=== PATIENT | male | born 1965 | race Caucasian/White ===

== ENCOUNTER 2016-11-28 10:56 | Inpatient (IN) | payer BC ==
[2016-11-28] MEDS ORDERED: ONDANSETRON 4 MG/2 ML VIAL IVPUSH ONE (11:11)
[2016-11-28] MEDS ORDERED: SODIUM CHLORIDE 1,000 ML IV SCH ×2 (11:15→16:15)
[2016-11-28] MEDS ORDERED: ACETAMINOPHEN 1000 MG/100 ML VIAL (NON FORMULARY) IVPB ONE (11:18)
--- NOTE | 2016-11-28 11:22 | PDOC ---
History of Present Illness - General Chief Complaint: Nausea/Vomiting Stated Complaint: VOMITING Time Seen by Provider: 11/28/16 11:05 - History of Present Illness Initial Comments: 11/28/16 11:19 51-year-old male with a past medical history of mild MR, hypertension, and diabetes He does live independently Patient is complaining of multiple episodes of vomiting for the past 24 hours, associated with a few episodes of diarrhea Is also complaining of a nonproductive cough He denies any fevers or chills He is complaining of abdominal pain with vomiting only, but otherwise no abdominal pain He is complaining of myalgias and a headache He is complaining of a mild sore throat He states that he did get the flu shot this year He denies any blood in his diarrhea or vomitus He states his cough is nonproductive He denies any other complaints at this time Patient was sent down from Dr. Choi's office to the emergency department Past History - Past Medical History Allergies/Adverse Reactions: Allergies Allergy/AdvReac Type Severity Reaction Status Date / Time pioglitazone HCl [From Actos] AdvReac Unknown Fluid Verified 11/28/16 10:58 retention& Accelerated HTN Home Medications: Ambulatory Orders Tamsulosin HCl [Flomax] 0.4 mg PO DAILY #7 capsule 01/09/16 Diabetes: Yes HTN: Yes Hypercholesterolemia: Yes - Surgical History Orthopedic Surgery: Yes (RT TOTAL KNEE REPLACEMENT) - Psycho/Social/Smoking Cessation Hx Anxiety: No Suicidal Ideation: No Smoking Status: No Smoking History: Never smoked Have you smoked in the past 12 months: No Number of Cigarettes Smoked Daily: 0 Hx Alcohol Use: No Drug/Substance Use Hx: No Substance Use Type: None Review of Systems - Review of Systems Able to Perform ROS?: Yes Comments:: 11/28/16 11:21 Review of systems is as per history of present illness and otherwise negative *Physical Exam - Physical Exam Comments: 11/28/16 11:21 Physical exam GENERAL: The patient is awake, alert, and fully oriented, and in no apparent distress. HEAD: Normal with no signs of trauma. EYES: Sclera anicteric, conjunctiva normal ENT: He does membranes dry NECK: Normal range of motion, supple LUNGS: Breath sounds equal, clear to auscultation bilaterally. No wheezes, and no crackles. HEART: Regular rate and rhythm, normal S1 and S2 without murmur, rub or gallop. ABDOMEN: Soft, nontender, normoactive bowel sounds. No guarding, no rebound. No masses appreciated. Abdomen is completely soft and nontender EXTREMITIES: Normal range of motion, no edema. No clubbing or cyanosis. No cords, erythema, or tenderness. NEUROLOGICAL: Cranial nerves II through XII grossly intact. Normal speech, normal gait. PSYCH: Normal mood, normal affect. SKIN: Warm, Dry, normal turgor, no rashes or lesions noted. ED Treatment Course - LABORATORY CBC & Chemistry Diagram: 11/28/16 11:15 11/28/16 11:15 - RADIOLOGY Radiology Studies Ordered: Category Date Time Status CHEST X-RAY PORTABLE* [RAD] Stat Radiology 11/28/16 11:18 Ordered Medical Decision Making - Medical Decision Making 11/28/16 13:57 Patient had 2 L of normal saline, and meds Although he is feeling a little better, he is still unable to tolerate clear liquids Labwork is significant for a random glucose of 256 A white count of 12.6 Chest x-ray NAD 11/28/16 13:58 Laboratory Results - last 24 hr 11/28/16 11/28/16 11:15 11:15 WBC 12.6 H RBC 4.88 Hgb 14.5 D Hct 43.3 MCV 88.7 MCHC 33.5 RDW 11.8 L Plt Count 276 D MPV 9.7 D Sodium 134 L Potassium 4.0 Chloride 97 L Carbon Dioxide 27 Anion Gap 10 BUN 9 D Creatinine 1.1 Creat Clearance w eGFR > 60 Random Glucose 256 H D Calcium 9.3 Magnesium 1.5 L Total Bilirubin 0.6 AST 39 D ALT 25 Alkaline Phosphatase 95 H Total Protein 6.8 Albumin 3.4 L Lipase 23 Patient has mild MR, and lives alone, and cares for himself He still appears mildly dehydrated Would like to place in observation, continue hydration to his feeling well enough to go home again and care for himself 11/28/16 14:12 Case discussed with hospitalist-Will place in observation *DC/Admit/Observation/Transfer Diagnosis at time of Disposition: Nausea vomiting and diarrhea, Dehydration, Cough - Discharge Dispostion Condition at time of disposition: Stable Admit: Yes
[2016-11-28] MEDS ORDERED: ACETAMINOPHEN INJECTION 100 ML IVPB ONE (11:27)
[2016-11-28] MEDS ORDERED: ONDANSETRON 4 MG/2 ML VIAL ONE ×2 (11:27→16:54)
[2016-11-28 11:29] LABS: MCH 29.7 pg (25.7-33.7); MCHC 33.5 g/dl (32.0-35.9); MEAN CELL VOLUME 88.7 fl (80-96); MEAN PLT VOLUME 9.7 fl (7.5-11.1); PLATELET COUNT 276 K/MM3 (134-434); RDW 11.8 % (11.9-15.9); WHITE BLOOD COUNT 12.6 K/mm3 (4.0-10.0)
[2016-11-28 11:52] LABS: ALBUMIN 3.4 g/dl (3.5-5.0); ALK PHOS 95 U/L (32-92); ANION GAP 10 (8-16); BILIRUBIN,TOTAL 0.6 mg/dl (0.2-1.0); CALCIUM 9.3 mg/dl (8.4-10.2); CO2 27 mmol/L (22-28); CREATININE 1.1 mg/dl (0.6-1.3); GLUCOSE,RANDOM 256 mg/dl (74-106); MAGNESIUM 1.5 mg/dL (1.8-2.4); SGOT/AST 39 U/L (10-42); SGPT/ALT 25 U/L (10-40); TOT PROT 6.8 g/dl (6.4-8.3)
--- NOTE | 2016-11-28 15:09 | HP ---
CHIEF COMPLAINT: Vomiting PCP: Dr. Nj HISTORY OF PRESENT ILLNESS: History of mild MR, HTN, NIDDM who presented to the ED complaining of vomiting x 1.5 days with several episodes of diarrhea. He reports some generalized abdominal pain. He has had chills but no fever. Collateral history is obtained from his uncle Maynor Harrison ([phone]). ER course was notable for: (1) WBC mildly elevated at 12.6 (2) Hypomagnesemia (1.5) (3) Rapid flu negative Vital signs are notable for HR 110. Recent Travel: None PAST SURGICAL HISTORY: Right TKR Social History: Formerly worked for [employer], not currently employed. Lives alone. Smoking: None Alcohol: None Drugs: None Family History: None significant per uncle Allergies pioglitazone HCl [From [employer]] Adverse Reaction (Unknown, Verified 11/28/16 10:58 ) Fluid retention& Accelerated HTN HOME MEDICATIONS: Medication Instructions Recorded Tamsulosin HCl [Flomax] 0.4 mg PO DAILY #7 capsule 01/09/16 REVIEW OF SYSTEMS CONSTITUTIONAL: Chills Absent: fever, diaphoresis, generalized weakness, malaise, loss of appetite, weight change HEENT: Absent: rhinorrhea, nasal congestion, throat pain, throat swelling, difficulty swallowing, mouth swelling, ear pain, eye pain, visual changes CARDIOVASCULAR: Absent: chest pain, syncope, palpitations, irregular heart rate, lightheadedness , peripheral edema RESPIRATORY: Productive cough, pain with deep breathing Absent: shortness of breath, dyspnea with exertion, orthopnea, wheezing, stridor , hemoptysis GASTROINTESTINAL: See HPI GENITOURINARY: Absent: dysuria, frequency, urgency, hesitancy, hematuria, flank pain, genital pain MUSCULOSKELETAL: Chronic right knee pain Absent: myalgia, joint swelling, back pain, neck pain SKIN: Absent: rash, itching, pallor HEMATOLOGIC/IMMUNOLOGIC: Absent: easy bleeding, easy bruising, lymphadenopathy, frequent infections ENDOCRINE: Absent: unexplained weight gain, unexplained weight loss, heat intolerance, cold intolerance NEUROLOGIC: Absent: headache, focal weakness or paresthesias, dizziness, unsteady gait, seizure, mental status changes, bladder or bowel incontinence PSYCHIATRIC: Absent: anxiety, depression, suicidal or homicidal ideation, hallucinations. PHYSICAL EXAMINATION Vital Signs - 24 hr 11/28/16 11:05 Temperature 98.1 F Pulse Rate 110 H Respiratory 16 Rate Blood Pressure 130/92 O2 Sat by Pulse 100 Oximetry (%) GENERAL: Awake, alert, and fully oriented, in no acute distress. HEAD: Normal with no signs of trauma. EYES: Pupils equal, round and reactive to light, extraocular movements intact, sclera anicteric, conjunctiva clear. No lid lag. EARS, NOSE, THROAT: Ears normal, nares patent, oropharynx clear without exudates. Moist mucous membranes. NECK: Normal range of motion, supple without lymphadenopathy, JVD, or masses. LUNGS: Breath sounds equal, clear to auscultation bilaterally. No wheezes, and no crackles. No accessory muscle use. HEART: Tachycardic. Regular rate and rhythm, normal S1 and S2 without murmur, rub or gallop. ABDOMEN: Soft, nontender even to deep palpation, not distended, normoactive bowel sounds, no guarding, no rebound, no masses. No hepatomegaly or splenomegaly. MUSCULOSKELETAL: Normal range of motion at all joints. No bony deformities or tenderness. No CVA tenderness. UPPER EXTREMITIES: 2+ pulses, warm, well-perfused. No cyanosis. No clubbing. Cap refill <2 seconds. No peripheral edema. LOWER EXTREMITIES: 2+ pulses, warm, well-perfused. No calf tenderness. No peripheral edema. NEUROLOGICAL: Cranial nerves II-XII intact. Normal speech. Normal gait. PSYCHIATRIC: Cooperative. Good eye contact. Appropriate mood and affect. SKIN: Warm, dry, normal turgor, no rashes or lesions noted. Laboratory Results - last 24 hr 11/28/16 11/28/16 11:15 11:15 WBC 12.6 H RBC 4.88 Hgb 14.5 D Hct 43.3 MCV 88.7 MCHC 33.5 RDW 11.8 L Plt Count 276 D MPV 9.7 D Sodium 134 L Potassium 4.0 Chloride 97 L Carbon Dioxide 27 Anion Gap 10 BUN 9 D Creatinine 1.1 Creat Clearance w eGFR > 60 Random Glucose 256 H D Calcium 9.3 Magnesium 1.5 L Total Bilirubin 0.6 AST 39 D ALT 25 Alkaline Phosphatase 95 H Total Protein 6.8 Albumin 3.4 L Lipase 23 ASSESSMENT/PLAN: 51 year old male with n/v/d. Problem List - Problem (1) Nausea vomiting and diarrhea Assessment/Plan: -No focal abdominal tenderness; suspect viral gastroenteritis -Continue IV hydration -Zofran 4mg IVP q6h prn nausea -Replete Mg -Clear liquid diet, advance as tolerated Code(s): R11.2 - NAUSEA WITH VOMITING, UNSPECIFIED R19.7 - DIARRHEA, UNSPECIFIED (2) Diabetes mellitus Assessment/Plan: -Continue Metformin and Glipizide (short expected length of stay) -Add FS TIDAC and ISS (above goal) -Check HgbA1C Code(s): E11.9 - TYPE 2 DIABETES MELLITUS WITHOUT COMPLICATIONS Qualifiers: Diabetes mellitus type: type 2 Diabetes mellitus complication status: without complication (3) HTN (hypertension) Assessment/Plan: -At goal -Continue home Lisinopril Code(s): I10 - ESSENTIAL (PRIMARY) HYPERTENSION (4) DVT prophylaxis Assessment/Plan: -Low risk (short expected length of stay) -Ambulation Code(s): [id number] - Visit type - Emergency Visit Emergency Visit: Yes ED Registration Date: 11/28/16 Care time: The patient presented to the Emergency Department on the above date and was hospitalized for further evaluation of their emergent condition. - New Patient This patient is new to me today: Yes Date on this admission: 11/29/16 - Critical Care Critical Care patient: No
[2016-11-28] MEDS ORDERED: ONDANSETRON 4 MG/2 ML VIAL IVPB PRN (16:08)
[2016-11-28] MEDS ORDERED: ACETAMINOPHEN 325 MG TABLET (FP) PO PRN (16:08)
[2016-11-28] MEDS ORDERED: MAGNESIUM SULF 50% (8.12 MEQ/2 ML-1 GM VIAL) IVPB ONE (16:11)
[2016-11-28] MEDS ORDERED: MAGNESIUM SULF 50% (8.12 MEQ/2 ML-1 GM VIAL) ONE (16:30)
[2016-11-28] MEDS ORDERED: HEMOQUE TEST 1 EACH EACH ONE (17:03)
[2016-11-28] MEDS: metFORMIN HCL 500 MG TABLET (FP) PO SCH (17:19)
[2016-11-28] MEDS: glipiZIDE 10 MG TABLET (FP) PO SCH (17:19)
[2016-11-28 18:29] VITALS: BMI 33.5
[2016-11-28] MEDS: INSULIN SLIDING SCALE (NOVOLOG) 1 VIAL SQ SCH (18:30)
[2016-11-28] MEDS: NITROGLYCERIN SUBLINGUAL 1/150 0.4 MG TAB SL PRN ×3 (19:28→19:39)
[2016-11-28] MEDS ORDERED: NITROGLYCERIN SUBLINGUAL 1/150 0.4 MG TAB ONE ×2 (19:35→19:45)
[2016-11-28] MEDS ORDERED: ASPIRIN 325 MG TABLET PO ONE (19:58)
[2016-11-28] MEDS: morphine CARPU-JECT 2 MG/1 ML DISP.SYRIN IVPUSH PRN (20:00)
--- NOTE | 2016-11-28 20:11 | ED.PROV ---
Physicial Exam - Vital Signs Last Vital Signs Temp Pulse Resp BP Pulse Ox 99 F 113 H 20 131/81 98 11/28/16 18:18 11/28/16 18:18 11/28/16 18:18 11/28/16 18:18 11/28/16 18:29 - Physical Exam Reason for Response: 11/28/16 20:07 Called to the floor to evaluate this 51-year-old mentally challenged male who developed chest pain this evening. Patient describes the chest pain as being sharp in nature left-sided radiating towards her right. There is no associated nausea diaphoresis or shortness of breath however patient said that pain is worse when he moves worse when he coughs worse when he takes a deep breath. Patient is a poor historian however in review of his medications in chart it does appear he has a history of diabetes and hypertension. Patient is also noted to be somewhat obese. Prior to my arrival on the floor a EKG was done and then repeated as the machine was giving a reading of an acute NC/STEMI. On my evaluation of the EKG there is a poor baseline and the quality of the EKG is suboptimal however I am not interpreting it as an acute NC. In discussion with nursing patient's primary care doctor was contacted who ordered an aspirin, nitroglycerin and morphine. All of which were given to the patient either before or during my evaluation. None of the medication appeared to change the patient's symptoms. Cardiac labs including troponin were drawn and sent to the lab. A batch plant operator was contacted and nursing staff is waiting for a call back from the batch plant operator. I suggested that a copy of the EKG B also faxed to the batch plant operator for his interpretation and evaluation. Exam: General: Well-nourished well-developed individual, mild distress complaining of chest pain HEENT: Throat: Normal, tonsils normal, no erythema or exudate Neck: Supple, no meningeal signs, no lymphadenopathy Eyes::Pupils equal reactive and round, extraocular motion intact Chest: Tenderness on palpation and pain reproduced with palpation Cardiac: S1-S2 normal, regular rate and rhythm, no murmurs rubs or gallops Respiratory: Lungs clear to auscultation bilateral Abdomen: Soft, nondistended, normal bowel sounds, nontender to palpation diffusely Extremities: Warm, dry, no cyanosis, clubbing, or edema Skin: No rashes Neuro: Alert and oriented x3, nonfocal exam, grossly intact, normal gait Psych: Normal mood and affect
[2016-11-28 20:24] LABS: BASOPHIL 0.2 % (0-2.0); EOSINOPHIL 0.9 % (0-4.5); MCH 29.5 pg (25.7-33.7); MCHC 33.1 g/dl (32.0-35.9); MEAN CELL VOLUME 89.4 fl (80-96); MEAN PLT VOLUME 9.6 fl (7.5-11.1); NEUTROPHILS 82.8 % (42.8-82.8); PLATELET COUNT 273 K/MM3 (134-434); RDW 12.1 % (11.9-15.9); WHITE BLOOD COUNT 13.9 K/mm3 (4.0-10.0)
[2016-11-28 20:31] LABS: ACTIVATED PTT 28.7 SECONDS (24.0-38.9)
[2016-11-28 20:33] LABS: CPK(DFH) 43 IU/L (38-174)
[2016-11-28 20:34] LABS: ALBUMIN 3.1 g/dl (3.5-5.0); ALK PHOS 90 U/L (32-92); ANION GAP 7 (8-16); BILIRUBIN,TOTAL 0.6 mg/dl (0.2-1.0); CALCIUM 8.8 mg/dl (8.4-10.2); CO2 29 mmol/L (22-28); CREATININE 1.1 mg/dl (0.6-1.3); GLUCOSE,RANDOM 181 mg/dl (74-106); MAGNESIUM 1.9 mg/dL (1.8-2.4); SGOT/AST 32 U/L (10-42); SGPT/ALT 23 U/L (10-40); TOT PROT 6.1 g/dl (6.4-8.3)
[2016-11-28 20:35] LABS: INR 1.31 (0.82-1.09); PROTHROMBIN TIME (PATIENT) 14.3 SEC (10.2-13.0)
[2016-11-28 21:07] LABS: TROPONIN I (DFP) < 0.03 ng/ml (0.03-0.50)
--- NOTE | 2016-11-29 01:34 | HOSP ---
Subjective - Review of Symptoms Events since last encounter: Pt reported Chest pain earlier to staff. ECG done, troponin negative x 1. Dr. Mills consulted via telephone Subjective: Pt reports he still has some chest pain in the mid left side of his chest. States "it hurts every time i take a deep breath" Pulmonary: Yes: Pleuritic Chest Pain. No: Dyspnea, Cough Cardiovascular: Yes: Chest Pain Physical Examination Vital Signs: Vital Signs Temperature 98.9 F 11/29/16 00:24 Pulse Rate 100 H 11/29/16 00:24 Respiratory Rate 20 11/29/16 00:24 Blood Pressure 96/68 11/29/16 00:24 O2 Sat by Pulse Oximetry (%) 97 11/29/16 00:24 Constitutional: Yes: No Distress, Calm Cardiovascular: Yes: Regular Rate and Rhythm, S1, S2. No: Murmur, Rub Respiratory: Yes: CTA Bilaterally. No: Cough Gastrointestinal: Yes: Normal Bowel Sounds, Soft. No: Tenderness Edema: No Labs: Laboratory Results - last 24 hr 11/28/16 11/28/16 11/28/16 11:15 11:15 17:07 WBC 12.6 H RBC 4.88 Hgb 14.5 D Hct 43.3 MCV 88.7 MCHC 33.5 RDW 11.8 L Plt Count 276 D MPV 9.7 D Neutrophils % Lymphocytes % Monocytes % Eosinophils % Basophils % INR PTT (Actin FS) Sodium 134 L Potassium 4.0 Chloride 97 L Carbon Dioxide 27 Anion Gap 10 BUN 9 D Creatinine 1.1 Creat Clearance w eGFR > 60 POC Glucometer [phone] Random Glucose 256 H D Calcium 9.3 Magnesium 1.5 L Total Bilirubin 0.6 AST 39 D ALT 25 Alkaline Phosphatase 95 H Creatine Kinase Troponin I Total Protein 6.8 Albumin 3.4 L Lipase 23 11/28/16 11/28/16 11/28/16 20:00 20:00 20:00 WBC 13.9 H RBC 4.55 Hgb 13.4 Hct 40.7 MCV 89.4 MCHC 33.1 RDW 12.1 Plt Count 273 MPV 9.6 Neutrophils % 82.8 Lymphocytes % 10.4 Monocytes % 5.7 Eosinophils % 0.9 Basophils % 0.2 INR PTT (Actin FS) Sodium 135 L Potassium 4.0 Chloride 99 Carbon Dioxide 29 H Anion Gap 7 L BUN 9 Creatinine 1.1 Creat Clearance w eGFR > 60 POC Glucometer Random Glucose 181 H D Calcium 8.8 Magnesium 1.9 D Total Bilirubin 0.6 AST 32 ALT 23 Alkaline Phosphatase 90 Creatine Kinase 43 Troponin I < 0.03 L Total Protein 6.1 L Albumin 3.1 L Lipase 11/28/16 20:00 WBC RBC Hgb Hct MCV MCHC RDW Plt Count MPV Neutrophils % Lymphocytes % Monocytes % Eosinophils % Basophils % INR 1.31 H PTT (Actin FS) 28.7 Sodium Potassium Chloride Carbon Dioxide Anion Gap BUN Creatinine Creat Clearance w eGFR POC Glucometer Random Glucose Calcium Magnesium Total Bilirubin AST ALT Alkaline Phosphatase Creatine Kinase Troponin I Total Protein Albumin Lipase ECG: sinus rhythm, rate 115. St elevation lead I and II, No elevation in III or aVF or aVL, less than 1mm elevation in V5 & V6. ? J point elevation rather than true ST elevation Hospitalist Encounter Assessment: Chest pain, likely pleuritic - trend troponins, repeat ECG in am. - improved with morphine. - would give motrin if further pain. - cardiology consult appreciated-as per Dr. mills, not true ST elevation MA , call her if troponin positive.
[2016-11-29 03:14] LABS: TROPONIN I < 0.02 ng/ml (0.00-0.05)
[2016-11-29] MEDS: morphine CARPU-JECT 2 MG/1 ML DISP.SYRIN IVPUSH PRN (05:06)
[2016-11-29] MEDS ORDERED: glipiZIDE 5 MG TABLET (FP) ONE (07:09)
[2016-11-29] MEDS: glipiZIDE 10 MG TABLET (FP) PO SCH (07:10)
[2016-11-29] MEDS: metFORMIN HCL 500 MG TABLET (FP) PO SCH (07:11)
[2016-11-29] MEDS: INSULIN SLIDING SCALE (NOVOLOG) 1 VIAL SQ SCH ×3 (07:11→18:46)
[2016-11-29 08:21] LABS: BASOPHIL 0.2 % (0-2.0); EOSINOPHIL 1.5 % (0-4.5); MCH 29.6 pg (25.7-33.7); MCHC 32.6 g/dl (32.0-35.9); MEAN CELL VOLUME 90.7 fl (80-96); MEAN PLT VOLUME 10.1 fl (7.5-11.1); PLATELET COUNT 266 K/MM3 (134-434); RDW 12.1 % (11.9-15.9); WHITE BLOOD COUNT 13.2 K/mm3 (4.0-10.0)
[2016-11-29 08:40] LABS: ALBUMIN 2.9 g/dl (3.5-5.0); ALK PHOS 109 U/L (32-92); ANION GAP 7 (8-16); BILIRUBIN,TOTAL 0.7 mg/dl (0.2-1.0); CALCIUM 8.6 mg/dl (8.4-10.2); CO2 29 mmol/L (22-28); GLUCOSE,RANDOM 170 mg/dl (74-106); MAGNESIUM 1.8 mg/dL (1.8-2.4); SGOT/AST 31 U/L (10-42); SGPT/ALT 28 U/L (10-40)
[2016-11-29] MEDS: LISINOPRIL 5 MG TABLET (FP) PO SCH (09:28)
[2016-11-29] MEDS: TAMSULOSIN HCL 0.4 MG CAP.ER.24H (FP) PO SCH (09:28)
[2016-11-29] MEDS: IBUPROFEN 400 MG TABLET (FP) PO PRN ×2 (09:29→18:00)
[2016-11-29] MEDS ORDERED: ASPIRIN 81 MG CHEWABLE TABLETS PO SCH (10:00)
--- NOTE | 2016-11-29 10:09 | PN ---
Physical Exam: SUBJECTIVE: Patient seen and examined. Complaining of headache and chest pain. History difficult to ascertain due to developmental delay. OBJECTIVE: Vital Signs Period Temp Pulse Resp BP Sys/Carias Pulse Ox Last 24 Hr 98.3 F-99.2 F 100-117 19-20 96-131/66-93 97-98 GENERAL: The patient is awake, alert, and fully oriented, in no acute distress. HEAD: Normal with no signs of trauma; tenderness over frontal sinuses EYES: PERRL, extraocular movements intact, sclera anicteric, conjunctiva clear. No ptosis. LUNGS: Breath sounds equal, clear to auscultation bilaterally, no wheezes, no crackles, no accessory muscle use. HEART: Regular rate and rhythm, S1, S2 without murmur, rub or gallop. ABDOMEN: Soft, nontender, nondistended, normoactive bowel sounds, no guarding, no rebound EXTREMITIES: 2+ pulses, warm, well-perfused, no edema. NEUROLOGICAL: Cranial nerves II through XII grossly intact. Normal speech, gait not observed. Laboratory Results - last 24 hr 11/28/16 11/28/16 11/28/16 20:00 20:00 20:00 WBC 13.9 H RBC 4.55 Hgb 13.4 Hct 40.7 MCV 89.4 MCHC 33.1 RDW 12.1 Plt Count 273 MPV 9.6 Neutrophils % 82.8 Lymphocytes % 10.4 Monocytes % 5.7 Eosinophils % 0.9 Basophils % 0.2 ESR INR PTT (Actin FS) Sodium 135 L Potassium 4.0 Chloride 99 Carbon Dioxide 29 H Anion Gap 7 L BUN 9 Creatinine 1.1 Creat Clearance w eGFR > 60 POC Glucometer Random Glucose 181 H D Calcium 8.8 Magnesium 1.9 D Total Bilirubin 0.6 AST 32 ALT 23 Alkaline Phosphatase 90 Creatine Kinase 43 Troponin I < 0.03 L Total Protein 6.1 L Albumin 3.1 L 11/28/16 11/29/16 11/29/16 20:00 02:38 07:08 WBC RBC Hgb Hct MCV MCHC RDW Plt Count MPV Neutrophils % Lymphocytes % Monocytes % Eosinophils % Basophils % ESR INR 1.31 H PTT (Actin FS) 28.7 Sodium Potassium Chloride Carbon Dioxide Anion Gap BUN Creatinine Creat Clearance w eGFR POC Glucometer 150 Random Glucose Calcium Magnesium Total Bilirubin AST ALT Alkaline Phosphatase Creatine Kinase 35 L Troponin I < 0.02 Total Protein Albumin 11/29/16 11/29/16 11/29/16 08:00 08:00 08:00 WBC 13.2 H RBC 4.34 Hgb 12.8 Hct 39.3 MCV 90.7 MCHC 32.6 RDW 12.1 Plt Count 266 MPV 10.1 Neutrophils % 79.0 Lymphocytes % 12.3 Monocytes % 7.0 Eosinophils % 1.5 Basophils % 0.2 ESR INR PTT (Actin FS) Sodium 136 Potassium 4.4 Chloride 100 Carbon Dioxide 29 H Anion Gap 7 L BUN 10 Creatinine 1.0 Creat Clearance w eGFR > 60 POC Glucometer Random Glucose 170 H Calcium 8.6 Magnesium 1.8 Total Bilirubin 0.7 AST 31 ALT 28 D Alkaline Phosphatase 109 H D Creatine Kinase Troponin I 0.00 Total Protein 6.0 L Albumin 2.9 L 11/29/16 08:00 WBC RBC Hgb Hct MCV MCHC RDW Plt Count MPV Neutrophils % Lymphocytes % Monocytes % Eosinophils % Basophils % ESR 52 H INR PTT (Actin FS) Sodium Potassium Chloride Carbon Dioxide Anion Gap BUN Creatinine Creat Clearance w eGFR POC Glucometer Random Glucose Calcium Magnesium Total Bilirubin AST ALT Alkaline Phosphatase Creatine Kinase Troponin I Total Protein Albumin Active Medications Generic Name Dose Route Start Last Admin Trade Name Freq PRN Reason Stop Dose Admin Colchicine 0.6 mg 11/29/16 10:15 Colcrys - PO BID [facility] Heparin Sodium (Porcine) 5,000 unit 11/29/16 10:15 Heparin - SQ BID [facility] Ibuprofen 800 mg 11/29/16 09:09 11/29/16 09:29 Motrin - PO 800 mg Q8H PRN Administration FEVER Insulin Aspart 1 vial 11/28/16 16:30 11/29/16 07:11 Novolog Vial Sliding Scale - SQ Not Given TIDAC [facility] Protocol Lisinopril 5 mg 11/29/16 10:00 11/29/16 09:28 Prinivil PO 5 mg DAILY MIR Administration Pantoprazole Sodium 40 mg 11/29/16 10:15 Protonix - PO BID [facility]IR Tamsulosin HCl 0.4 mg 11/29/16 10:00 11/29/16 09:28 Flomax - PO 0.4 mg DAILY MIR Administration ASSESSMENT/PLAN: 51 year-old male with a PMH of mild MR, HTN, and NIDDM who presented to the ED with symptoms of gastroenteritis, found to have possible pericarditis. Pericarditis --patient complains of pleuritic-type chest pain with diffuse ST elevations on ECG suggestive of pericarditis --start ibuprofen 800mg TID, colchicine BID, protonix Viral gastroenteritis --no vomiting, no diarrhea --afebrile, mild leukocytosis --supportive care Headache --complains of bilateral frontal sinus pain, tender on palpation --CT head and sinuses NIDDM --Novolog sliding scale coverage Hypertension --continue Lisinopril BPH --continue Flomax Developmental Delay F/E/N Fluids: PO intake adequate Electrolytes: replete as indicated Nutrition: clear diabetic, advance as tolerated DVT prophylaxis: subq heparin Dispo: Patient has extended family members that check in on him, make sure he gets to doctors' appointments, etc. Maynor Winston (uncle) ([phone]) and Ronald Harrison (cousin)([phone]). Patient's health care proxy is his brother, Fran Langston, who lives in [place] ([phone]). Spoke to all three today and advised of patient's status and that he will need close followup with Dr. Holloway. Visit type - Emergency Visit Emergency Visit: Yes ED Registration Date: 11/28/16 Care time: The patient presented to the Emergency Department on the above date and was hospitalized for further evaluation of their emergent condition. - New Patient This patient is new to me today: Yes Date on this admission: 11/29/16 - Critical Care Critical Care patient: No
[2016-11-29] MEDS: PANTOPRAZOLE 40 MG TABLET (FP) PO SCH ×2 (10:42→21:16)
[2016-11-29] MEDS: COLCHICINE 0.6 MG TABLET (FP) PO SCH ×2 (10:42→21:16)
[2016-11-29] MEDS: HEPARIN NA (PORCINE) 5,000 UNITS/ML 1ML VIAL SQ SCH ×2 (10:42→21:16)
--- NOTE | 2016-11-29 12:13 | CONSULT ---
Consult Consult Specialty:: Cardiology Referred by:: Dr Jessica Skaggs Reason for Consultation:: Chest pain - History of Present Illness Chief Complaint: vomitting History of Present Illness: 51 yo mentally-challenged man, with hx of HTN, DM here with vomitting. Last night, he developed left-sided CP -. worse with coughing/deep breathing and palpation. The pain went down his left arm/hand. his EKG was read by machine as acute inferior [place]. However, pt was evaluated by the ER physician who didn't think so. They faxed me the EKG which I reviewed and I also didn't think it was c/w acute [place]. He was treat\ed with SL NTG w/o improvement, then morphine which eventually helped. His Brisa have since come back negative. Currently, he only has mild pain with deep breathing and on palpation. He denies cardiac hx -. no W[place], CP syndrome , CHF. He walks regularly w/o issues. He started vomiting on -. lasted all day. He denies fevers, sweats or chills. - History Source History Provided By: Patient - Past Medical History Cardio/Vascular: Yes: HTN Musculoskeletal: Yes: Other (knee issuesa) Endocrine: Yes: Diabetes Mellitus - Past Surgical History Past Surgical History: Yes: Joint Replacement (right knee, 05/01), Tonsillectomy - Alcohol/Substance Use Hx Alcohol Use: No History of Substance Use: reports: None - Smoking History Smoking history: Never smoked Have you smoked in the past 12 months: No Aproximately how many cigarettes per day: 0 - Social History Usual Living Arrangement: Alone ADL: Independent History of Recent Travel: No Home Medications - Allergies Allergies/Adverse Reactions: Allergies Allergy/AdvReac Type Severity Reaction Status Date / Time pioglitazone HCl [From Actos] AdvReac Unknown Fluid Verified 11/28/16 10:58 retention& Accelerated HTN - Home Medications Home Medications: Ambulatory Orders Tamsulosin HCl [Flomax] 0.4 mg PO DAILY #7 capsule 01/09/16 Family Disease History - Family Disease History Family History: Denies (premature CAD) Review of Systems - Review of Systems Constitutional: reports: Malaise Eyes: reports: No Symptoms HENT: reports: No Symptoms Neck: reports: No Symptoms Cardiovascular: reports: Chest Pain Respiratory: reports: No Symptoms Gastrointestinal: reports: Vomiting Genitourinary: reports: No Symptoms Musculoskeletal: reports: Joint Pain Neurological: reports: No Symptoms Endocrine: reports: No Symptoms Physical Exam Vital Signs: Vital Signs Temperature 98.3 F 11/29/16 06:00 Pulse Rate 105 H 11/29/16 06:00 Respiratory Rate 20 11/29/16 06:00 Blood Pressure 131/93 11/29/16 06:00 O2 Sat by Pulse Oximetry (%) 97 11/29/16 06:00 Constitutional: Yes: No Distress, Obese Eyes: Yes: Conjunctiva Clear HENT: Yes: Atraumatic Neck: Yes: Supple Cardiovascular: Yes: Regular Rate and Rhythm. No: Murmur Respiratory: Yes: CTA Bilaterally Gastrointestinal: Yes: Normal Bowel Sounds, Soft, Abdomen, Obese. No: Tenderness Extremities: Yes: Other (warm) Edema: No Peripheral Pulses WNL: Yes Neurological: Yes: Alert, Oriented Psychiatric: Yes: Alert, Oriented Labs: CBC, BMP 11/29/16 08:00 11/29/16 08:00 Imaging - Results Chest X-ray: Report Reviewed, Image Reviewed EKG: Report Reviewed, Image Reviewed (SR mild ST elevation in 1, 2 and V6.) Other: Other (Tele -> SR, ST) Assessment/Plan 51 yo male with the above history, here with gastroenteritis -. developed chest pain last night, which was pleuritic in nature and reproducible with palpation. No evidence of ACS -. Brisa negative On the differntial: Pericarditis -> EKG not typical, ST changes not throughout Costochondritis, especially given reproducibility with palpation PE -> doudtful Rec: Reasonable to treat with NSAIDS. Will address both pericarditis and costochondritis. However, would not give colchicine for long. Maybe a short course while here -> Would not d/c on it. Continue other meds Per IM Thanks! D/W Nay Matias
[2016-11-30] MEDS: IBUPROFEN 400 MG TABLET (FP) PO PRN ×2 (05:55→18:00)
[2016-11-30] MEDS: INSULIN SLIDING SCALE (NOVOLOG) 1 VIAL SQ SCH ×3 (06:35→16:50)
[2016-11-30 07:37] LABS: BASOPHIL 0.5 % (0-2.0); EOSINOPHIL 3.5 % (0-4.5); MCHC 34.1 g/dl (32.0-35.9); MEAN CELL VOLUME 90.9 fl (80-96); MEAN PLT VOLUME 10.4 fl (7.5-11.1); NEUTROPHILS 74.1 % (42.8-82.8); PLATELET COUNT 224 K/MM3 (134-434); RDW 12.6 % (11.9-15.9); WHITE BLOOD COUNT 10.5 K/mm3 (4.0-10.0)
[2016-11-30 08:23] LABS: ALBUMIN 2.6 g/dl (3.4-5.0); ANION GAP 6 (8-16); CALCIUM 8.8 mg/dL (8.5-10.1); CO2 30 mmol/L (21-32); GLUCOSE,RANDOM 149 mg/dL (74-106)
[2016-11-30 08:27] LABS: ALK PHOS 145 U/L (45-117); BILIRUBIN,TOTAL 0.6 mg/dL (0.2-1.0); CREATININE 1.1 mg/dL (0.7-1.3); PHOSPHOROUS 2.6 mg/dL (2.5-4.9); SGOT/AST 23 U/L (15-37); SGPT/ALT 30 U/L (12-78); TOT PROT 6.1 g/dl (6.4-8.2)
[2016-11-30] MEDS: LISINOPRIL 5 MG TABLET (FP) PO SCH (09:32)
[2016-11-30] MEDS: COLCHICINE 0.6 MG TABLET (FP) PO SCH ×2 (09:32→21:22)
[2016-11-30] MEDS: PANTOPRAZOLE 40 MG TABLET (FP) PO SCH ×2 (09:32→21:22)
[2016-11-30] MEDS: TAMSULOSIN HCL 0.4 MG CAP.ER.24H (FP) PO SCH (09:33)
[2016-11-30] MEDS: HEPARIN NA (PORCINE) 5,000 UNITS/ML 1ML VIAL SQ SCH ×2 (09:33→21:23)
--- NOTE | 2016-11-30 10:55 | PN ---
Physical Exam: SUBJECTIVE: Patient seen and examined. Chest pain is improved but continues to complain of 9/10 headache. Yesterday described headache as bifrontal. Today indicates right-sided frontal sinus distribution. Denies history of headache. Denies sensitivity to light or sound. Denies nausea/vomiting. Does generally drink a lot of diet soda and sugar-free chocolate. OBJECTIVE: Vital Signs Period Temp Pulse Resp BP Sys/Carias Pulse Ox Last 24 Hr 98.0 F-99.0 F 97-106 17-18 94-126/54-69 93-97 GENERAL: The patient is awake, alert, and fully oriented, in no acute distress. HEAD: Normal with no signs of trauma; tenderness over frontal sinuses EYES: PERRL, extraocular movements intact, sclera anicteric, conjunctiva clear. No ptosis. LUNGS: Breath sounds equal, clear to auscultation bilaterally, no wheezes, no crackles, no accessory muscle use. HEART: Regular rate and rhythm, S1, S2 without murmur, rub or gallop. ABDOMEN: Soft, nontender, nondistended, normoactive bowel sounds, no guarding, no rebound EXTREMITIES: 2+ pulses, warm, well-perfused, no edema. NEUROLOGICAL: Cranial nerves II through XII grossly intact. Normal speech, steady gait. Laboratory Results - last 24 hr 11/29/16 11/29/16 11/29/16 08:00 12:06 17:06 WBC RBC Hgb Hct MCV MCHC RDW Plt Count MPV Neutrophils % Lymphocytes % Monocytes % Eosinophils % Basophils % Sodium Potassium Chloride Carbon Dioxide Anion Gap BUN Creatinine Creat Clearance w eGFR POC Glucometer 144 118 Random Glucose Calcium Phosphorus Magnesium Total Bilirubin AST ALT Alkaline Phosphatase C-Reactive Protein 14.9 H Total Protein Albumin 11/29/16 11/30/16 11/30/16 22:24 05:40 05:40 WBC 10.5 H RBC 4.01 Hgb 12.4 Hct 36.4 MCV 90.9 MCHC 34.1 RDW 12.6 Plt Count 224 MPV 10.4 Neutrophils % 74.1 Lymphocytes % 13.2 Monocytes % 8.7 Eosinophils % 3.5 Basophils % 0.5 Sodium 138 Potassium 4.4 Chloride 102 Carbon Dioxide 30 Anion Gap 6 L BUN 12 Creatinine 1.1 Creat Clearance w eGFR > 60 POC Glucometer 197 Random Glucose 149 H Calcium 8.8 Phosphorus 2.6 Magnesium 2.0 Total Bilirubin 0.6 AST 23 ALT 30 Alkaline Phosphatase 145 H C-Reactive Protein Total Protein 6.1 L Albumin 2.6 L 11/30/16 06:29 WBC RBC Hgb Hct MCV MCHC RDW Plt Count MPV Neutrophils % Lymphocytes % Monocytes % Eosinophils % Basophils % Sodium Potassium Chloride Carbon Dioxide Anion Gap BUN Creatinine Creat Clearance w eGFR POC Glucometer 154 Random Glucose Calcium Phosphorus Magnesium Total Bilirubin AST ALT Alkaline Phosphatase C-Reactive Protein Total Protein Albumin Active Medications Generic Name Dose Route Start Last Admin Trade Name Freq PRN Reason Stop Dose Admin Colchicine 0.6 mg 11/29/16 10:15 11/30/16 09:32 Colcrys - PO 0.6 mg BID MIR Administration Heparin Sodium (Porcine) 5,000 unit 11/29/16 10:15 11/30/16 09:33 Heparin - SQ 5,000 unit BID MIR Administration Ibuprofen 800 mg 11/29/16 09:09 11/30/16 05:55 Motrin - PO 800 mg Q8H PRN Administration FEVER Insulin Aspart 1 vial 11/28/16 16:30 11/30/16 06:35 Novolog Vial Sliding Scale - SQ 2 units TIDAC MIR Administration Protocol Lisinopril 5 mg 11/29/16 10:00 11/30/16 09:32 Prinivil PO 5 mg DAILY MIR Administration Pantoprazole Sodium 40 mg 11/29/16 10:15 11/30/16 09:32 Protonix - PO 40 mg BID MIR Administration Tamsulosin HCl 0.4 mg 11/29/16 10:00 11/30/16 09:33 Flomax - PO 0.4 mg DAILY MIR Administration ASSESSMENT/PLAN: 51 year-old male with a PMH of mild MR, HTN, and NIDDM who presented to the ED with symptoms of gastroenteritis, found to have possible pericarditis. Pericarditis --pleuritic-type chest pain is improved --continue ibuprofen 800mg TID, colchicine BID, protonix --crp 14.9; continue to trend Viral gastroenteritis --no vomiting, no diarrhea --afebrile, mild leukocytosis --supportive care Headache --complains of right-sided headache, likely multifactorial: mild sinus inflammation v. caffeine withdrawal? --non focal neuro exam, CT head negative --start fioricet q12h --start fluticasone nasal spray NIDDM --Novolog sliding scale coverage Hypertension --continue Lisinopril BPH --continue Flomax Developmental Delay F/E/N Fluids: PO intake adequate Electrolytes: replete as indicated Nutrition: diabetic, low sodium DVT prophylaxis: subq heparin Dispo: Patient has extended family members that check in on him, make sure he gets to doctors' appointments. Maynor Shahididan (uncle) ([phone]) and Ronald Shahididan (cousin)([phone]). Patient's health care proxy is his brother, Fran Langston, who lives in [place] ([phone]). D/c colchicine on discharge. Full Code. Visit type - Emergency Visit Emergency Visit: Yes ED Registration Date: 11/28/16 Care time: The patient presented to the Emergency Department on the above date and was hospitalized for further evaluation of their emergent condition. - New Patient This patient is new to me today: No - Critical Care Critical Care patient: No
[2016-11-30] MEDS ORDERED: ACETAMINOPHEN/CAFFEINE/BUTALBITAL 1 TAB PO SCH (11:00)
[2016-11-30] MEDS: FLUTICASONE PROP 0.05% 16 GM NASAL SPRAY NS SCH ×2 (11:32→21:54)
--- NOTE | 2016-11-30 14:50 | EKG ---
Test Reason : Blood Pressure : / mmHG Vent. Rate : 109 BPM Atrial Rate : 109 BPM P-R Int : 170 ms QRS Dur : 082 ms QT Int : 334 ms P-R-T Axes : 025 015 026 degrees QTc Int : 449 ms SINUS TACHYCARDIA WITH OCCASIONAL PREMATURE VENTRICULAR COMPLEXES ST ELEVATION CONSIDER INFEROLATERAL INJURY OR ACUTE INFARCT ACUTE [place] / STEMI ABNORMAL ECG WHEN COMPARED WITH ECG OF 28-NOV-2016 19:27, PREMATURE VENTRICULAR COMPLEXES ARE NOW PRESENT Confirmed by OLIMPIA BAKER MD ([id number]) on 11/30/2016 2:49:56 PM Referred By: JACQUE DURBIN Confirmed By:OLIMPIA BAKER MD
--- NOTE | 2016-11-30 17:37 | PN ---
Progress Note, Physician History of Present Illness: no new complaints . - Current Medication List Current Medications: Active Medications Acetaminophen/Butalbital/Caffeine (Fioricet -) 1 tablet PO Q12H [facility] Last Admin: 11/30/16 11:31 Dose: 1 tablet Colchicine (Colcrys -) 0.6 mg PO BID [facility] Last Admin: 11/30/16 09:32 Dose: 0.6 mg Fluticasone Propionate (Flonase -) 1 spray NS BID [facility] Last Admin: 11/30/16 11:32 Dose: 1 spray Heparin Sodium (Porcine) (Heparin -) 5,000 unit SQ BID [facility] Last Admin: 11/30/16 09:33 Dose: 5,000 unit Ibuprofen (Motrin -) 800 mg PO Q8H PRN PRN Reason: FEVER Last Admin: 11/30/16 05:55 Dose: 800 mg Insulin Aspart (Novolog Vial Sliding Scale -) 1 vial SQ TIDAC [facility] PRN Reason: Protocol Last Admin: 11/30/16 16:50 Dose: Not Given Lisinopril (Prinivil) 5 mg PO DAILY [facility] Last Admin: 11/30/16 09:32 Dose: 5 mg Pantoprazole Sodium (Protonix -) 40 mg PO BID [facility] Last Admin: 11/30/16 09:32 Dose: 40 mg Tamsulosin HCl (Flomax -) 0.4 mg PO DAILY [facility] Last Admin: 11/30/16 09:33 Dose: 0.4 mg - Objective Vital Signs: Vital Signs Temperature 97.9 F 11/30/16 14:32 Pulse Rate 102 H 11/30/16 14:32 Respiratory Rate 20 11/30/16 14:32 Blood Pressure 121/68 11/30/16 14:32 O2 Sat by Pulse Oximetry (%) 95 11/30/16 14:32 Constitutional: Yes: No Distress, Obese Eyes: Yes: Conjunctiva Clear HENT: Yes: Atraumatic Neck: Yes: Supple Cardiovascular: Yes: Regular Rate and Rhythm Respiratory: Yes: CTA Bilaterally Gastrointestinal: Yes: Normal Bowel Sounds, Soft Extremities: Yes: Other (warm) Edema: No Peripheral Pulses WNL: Yes Neurological: Yes: Alert, Oriented Psychiatric: Yes: Alert, Oriented Labs: INR, PTT INR 1.31 (0.82-1.09) H 11/28/16 20:00 Assessment/Plan 51 yo male with the above history, here with gastroenteritis -. developed chest pain last night, which was pleuritic in nature and reproducible with palpation. No evidence of ACS -. Brisa negative On the differntial: Pericarditis -> EKG not typical, ST changes not throughout Costochondritis, especially given reproducibility with palpation PE -> doudtful Better, though stilll with pleuritic pain Rec: Reasonable to continue with NSAIDS. Will address both pericarditis and costochondritis. However, would d/c colchicine on d/c Continue other meds Per IM Thanks! We'll see prn!
[2016-11-30] MEDS ORDERED: PT OWN MED DRAWER 7, Y5N ONE (21:01)
[2016-11-30] MEDS: ACETAMINOPHEN/CAFFEINE/BUTALBITAL 1 TAB PO SCH (21:22)
[2016-12-01] MEDS: ACETAMINOPHEN/CAFFEINE/BUTALBITAL 1 TAB PO SCH ×3 (06:35→21:38)
[2016-12-01] MEDS: INSULIN SLIDING SCALE (NOVOLOG) 1 VIAL SQ SCH ×3 (06:55→16:42)
[2016-12-01] MEDS ORDERED: METOCLOPRAMIDE HCL INJECTION 10 MG/2 ML VIAL IVPB ONE (09:15)
[2016-12-01] MEDS ORDERED: MAGNESIUM SULF 50% (8.12 MEQ/2 ML-1 GM VIAL) IVPB ONE (09:15)
[2016-12-01] MEDS ORDERED: KETOROLAC TROMETHAMINE 30 MG/1 ML VIAL IVPUSH ONE (09:30)
[2016-12-01] MEDS: HEPARIN NA (PORCINE) 5,000 UNITS/ML 1ML VIAL SQ SCH ×2 (09:40→22:33)
[2016-12-01] MEDS: PANTOPRAZOLE 40 MG TABLET (FP) PO SCH ×2 (09:45→21:39)
[2016-12-01] MEDS: TAMSULOSIN HCL 0.4 MG CAP.ER.24H (FP) PO SCH (09:45)
[2016-12-01] MEDS: COLCHICINE 0.6 MG TABLET (FP) PO SCH ×2 (09:45→21:38)
[2016-12-01] MEDS: LISINOPRIL 5 MG TABLET (FP) PO SCH (09:45)
[2016-12-01] MEDS: FLUTICASONE PROP 0.05% 16 GM NASAL SPRAY NS SCH ×2 (09:49→21:39)
[2016-12-01] MEDS ORDERED: PT OWN MED DRAWER 7, Y5N ONE ×3 (09:52→21:00)
--- NOTE | 2016-12-01 11:46 | PN ---
[id number] vomiting. patient denies any chest pain or shortness of breath OBJECTIVE:51 year-old male with a PMH of mild MR, HTN, and NIDDM who presented to the ED with symptoms of gastroenteritis, found to have possible pericarditis. Vital Signs Period Temp Pulse Resp BP Sys/Carias Pulse Ox Last 24 Hr 98.5 F-98.5 F 92-102 18-20 121-130/57-70 95-98 GENERAL: The patient is awake, alert, and fully oriented, in no acute distress. HEAD: Normal with no signs of trauma. EYES: PERRL, extraocular movements intact, sclera anicteric, conjunctiva clear. No ptosis. ENT: Ears normal, nares patent, oropharynx clear without exudates, moist mucous membranes. NECK: Trachea midline, full range of motion, supple. LUNGS: Breath sounds equal, clear to auscultation bilaterally, no wheezes, no crackles, no accessory muscle use. HEART: Regular rate and rhythm, S1, S2 without murmur, rub or gallop. ABDOMEN: Soft, obese,nontender, nondistended, normoactive bowel sounds, no guarding, no rebound, no hepatosplenomegaly, no masses. EXTREMITIES: 2+ pulses, warm, well-perfused, no edema. NEUROLOGICAL: Cranial nerves II through XII grossly intact. Normal speech, gait not observed. PSYCH: Normal mood, normal affect. SKIN: Warm, dry, normal turgor, no rashes or lesions noted Laboratory Results - last 24 hr 11/30/16 12/01/16 12/01/16 16:46 06:25 07:14 POC Glucometer 148 156 C-Reactive Protein 14.6 H D Active Medications Generic Name Dose Route Start Last Admin Trade Name Freq PRN Reason Stop Dose Admin Acetaminophen/Butalbital/Caffeine 1 tablet 11/30/16 22:00 12/01/16 06:35 Fioricet - PO 1 tablet TID MIR Administration Colchicine 0.6 mg 11/29/16 10:12/01/16 09:45 Colcrys - PO 0.6 mg BID MIR Administration Fluticasone Propionate 1 spray 11/30/16 11:00 12/01/16 09:49 Flonase - NS 1 spray BID MIR Administration Heparin Sodium (Porcine) 5,000 unit 11/29/16 10:15 12/01/16 09:40 Heparin - SQ 5,000 unit BID MIR Administration Ibuprofen 800 mg 11/29/16 09:09 11/30/16 18:00 Motrin - PO 800 mg Q8H PRN Administration FEVER Insulin Aspart 1 vial 11/28/16 16:30 12/01/16 06:55 Novolog Vial Sliding Scale - SQ 2 units TIDAC MRI Administration Protocol Lisinopril 5 mg 11/29/16 10:00 12/01/16 09:45 Prinivil PO 5 mg DAILY MIR Administration Pantoprazole Sodium 40 mg 11/29/16 10:15 12/01/16 09:45 Protonix - PO 40 mg BID MIR Administration Tamsulosin HCl 0.4 mg 11/29/16 10:00 12/01/16 09:45 Flomax - PO 0.4 mg DAILY MIR Administration ASSESSMENT/PLAN: 1) Card: Pericarditis -patient denies any chest pain -continue ibuprofen 800mg TID, colchicine BID, protonix -crp 14.9; continue to trend Hypertension -continue Lisinopril 2) GI Viral gastroenteritis - pt tolerating regular meals 3) Neuro Headache - ct of head negative - reports left-sided headache, magnesium, Toradol, Reglan and Benadryl ordered - continue fioricet q12h - continue fluticasone nasal spray 4) endo NIDDM -Novolog sliding scale coverage F/E/N Fluids: PO intake adequate Electrolytes: replete as indicated Nutrition: diabetic, low sodium DVT prophylaxis: subq heparin Dispo: Patient has extended family members that check in on him, make sure he gets to doctors' appointments. Maynor Harrison (uncle) ([phone]) and Ronald Harrison (cousin)([phone]). Patient's health care proxy is his brother, Fran Langston, who lives in [place] ([phone]). D/c colchicine on discharge. Full Code. Visit type - Emergency Visit Emergency Visit: Yes ED Registration Date: 11/30/16 Care time: The patient presented to the Emergency Department on the above date and was hospitalized for further evaluation of their emergent condition. - New Patient This patient is new to me today: Yes Date on this admission: 12/01/16 - Critical Care Critical Care patient: No - Discharge Referral Referred to [facility] No
[2016-12-01] MEDS: IBUPROFEN 400 MG TABLET (FP) PO PRN (14:29)
[2016-12-01] MEDS: SODIUM CHLORIDE IVPB SCH ×2 (14:56→17:39)
[2016-12-01] MEDS: AMPICILLIN NA IVPB SCH ×2 (14:56→17:39)
[2016-12-01] MEDS: SULBACTAM NA IVPB SCH ×2 (14:56→17:39)
--- NOTE | 2016-12-02 01:28 | ED.PROV ---
Physicial Exam - Vital Signs Last Vital Signs Temp Pulse Resp BP Pulse Ox 99.4 F 115 H 19 143/76 94 L 12/01/16 22:31 12/02/16 01:24 12/02/16 01:24 12/02/16 01:24 12/02/16 01:24 - Physical Exam Reason for Response: 12/02/16 01:25 Called to the floor to evaluate this 51-year-old male with mild mental retardation. Patient got out of bed said he felt dizzy and ended up sitting down on the floor. Nursing staff found him sitting on the floor. Patient said he did not hit his head he did not pass out. Patient denies any injury. Exam: General: Well-nourished well-developed individual, no acute distress HEENT: Throat: Normal, tonsils normal, no erythema or exudate Neck: Supple, no meningeal signs, no lymphadenopathy Eyes::Pupils equal reactive and round, extraocular motion intact Chest: Nontender to palpation Abdomen: Soft, nondistended, normal bowel sounds, nontender to palpation diffusely Extremities: Warm, dry, no cyanosis, clubbing, or edema Skin: No rashes Neuro: Alert, nonfocal exam, grossly intact Psych: Normal mood and affect Assessment and plan: This is a 51-year-old male who apparently felt dizzy and sat down on the floor. Patient was found sitting on the floor by staff. Patient is a poor historian secondary to his mental retardation. No obvious injury on palpation of his scalp and extremities and torso. No further testing was recommended.
[2016-12-02] MEDS ORDERED: PT OWN MED DRAWER 7, Y5N ONE ×2 (02:21→08:56)
[2016-12-02] MEDS: SODIUM CHLORIDE IVPB SCH ×2 (02:33→09:15)
[2016-12-02] MEDS: AMPICILLIN NA IVPB SCH ×2 (02:33→09:15)
[2016-12-02] MEDS: SULBACTAM NA IVPB SCH ×2 (02:33→09:15)
[2016-12-02] MEDS: IBUPROFEN 400 MG TABLET (FP) PO PRN (04:42)
[2016-12-02] MEDS: ACETAMINOPHEN/CAFFEINE/BUTALBITAL 1 TAB PO SCH ×2 (06:00→14:06)
[2016-12-02] MEDS: INSULIN SLIDING SCALE (NOVOLOG) 1 VIAL SQ SCH ×2 (07:39→11:06)
[2016-12-02] MEDS ORDERED: ONDANSETRON 4 MG/2 ML VIAL ONE (08:54)
[2016-12-02] MEDS: HEPARIN NA (PORCINE) 5,000 UNITS/ML 1ML VIAL SQ SCH (09:13)
[2016-12-02] MEDS ORDERED: ONDANSETRON 4 MG TABLET PO ONE (09:13)
[2016-12-02] MEDS: FLUTICASONE PROP 0.05% 16 GM NASAL SPRAY NS SCH (09:13)
[2016-12-02] MEDS: COLCHICINE 0.6 MG TABLET (FP) PO SCH (09:14)
[2016-12-02] MEDS: LISINOPRIL 5 MG TABLET (FP) PO SCH (09:14)
[2016-12-02] MEDS: PANTOPRAZOLE 40 MG TABLET (FP) PO SCH (09:14)
[2016-12-02] MEDS: TAMSULOSIN HCL 0.4 MG CAP.ER.24H (FP) PO SCH (09:14)
[2016-12-02] MEDS ORDERED: BENZOCAINE/MENTH/CETYLPYRD CL 1 EACH LOZENGE MM PRN (10:46)
--- NOTE | 2016-12-02 14:11 | DS ---
Physical Exam: SUBJECTIVE: Patient seen and examined OBJECTIVE: Vital Signs Period Temp Pulse Resp BP Sys/Carias Pulse Ox Last 24 Hr 99.1 F-99.4 F 113-115 17-19 105-143/75-76 92-94 PHYSICAL EXAM GENERAL: The patient is awake, alert, and fully oriented, in no acute distress. HEAD: Normal with no signs of trauma. EYES: PERRL, extraocular movements intact, sclera anicteric, conjunctiva clear. ENT: Ears normal, nares patent, oropharynx clear without exudates, moist mucous membranes. NECK: Trachea midline, full range of motion, supple. LUNGS: Breath sounds equal, clear to auscultation bilaterally, no wheezes, no crackles, no accessory muscle use. HEART: Regular rate and rhythm, S1, S2 without murmur, rub or gallop. ABDOMEN: Soft, nontender, nondistended, normoactive bowel sounds, no guarding, no rebound, no hepatosplenomegaly, no masses. EXTREMITIES: 2+ pulses, warm, well-perfused, no edema. NEUROLOGICAL: Cranial nerves II through XII grossly intact. Normal speech, gait not observed. PSYCH: Normal mood, normal affect. SKIN: Warm, dry, normal turgor, no rashes or lesions noted. LABS Laboratory Results - last 24 hr 12/01/16 12/01/16 12/02/16 16:40 20:31 01:51 POC Glucometer 185 184 190 12/02/16 12/02/16 07:32 10:59 POC Glucometer 176 161 HOSPITAL COURSE: Date of Admission:11/30/16 Date of Discharge: 12/02/16 Minutes to complete discharge: 45 Discharge Summary Reason For Visit: DEHYDRATION/COUGH/N.V DIARRHEA Current Active Problems Cough (Acute) DVT prophylaxis (Acute) Dehydration (Acute) Nausea vomiting and diarrhea (Acute) Condition: Stable - Home Medications Comprehensive Discharge Medication List: Ambulatory Orders Tamsulosin HCl [Flomax] 0.4 mg PO DAILY #7 capsule 01/09/16 - Discharge Referral Referred to [facility] No
[2016-12-02 14:16] VITALS: BP 110/83; PULSE 112; TEMP 98.8
--- NOTE | 2016-12-02 16:19 | EKG ---
Test Reason : Blood Pressure : / mmHG Vent. Rate : 113 BPM Atrial Rate : 113 BPM P-R Int : 176 ms QRS Dur : 084 ms QT Int : 310 ms P-R-T Axes : 046 010 023 degrees QTc Int : [address] ELEVATION SUGGESTS MYOCARDIAL INJURY VS. PERICARDITIS ABNORMAL ECG WHEN COMPARED WITH ECG OF 30-NOV-2016 05:35, NO SIGNIFICANT CHANGE WAS FOUND CLINICAL CORRELATION IS RECOMMENDED Confirmed by RAI DUKE MD ([id number]) on 12/02/2016 4:19:06 PM Referred By: Confirmed By:RAI DUKE MD
--- NOTE | 2016-12-02 16:41 | EKG ---
Test Reason : Blood Pressure : / mmHG Vent. Rate : 099 BPM Atrial Rate : 099 BPM P-R Int : 192 ms QRS Dur : 086 ms QT Int : 340 ms P-R-T Axes : 049 011 022 degrees QTc Int : 436 ms NORMAL SINUS RHYTHM ST ELEVATION CANNOT EXCLUDE MYOCARDIAL INJURY VS. PERICARDITIS ABNORMAL ECG WHEN COMPARED WITH ECG OF 29-NOV-2016 08:21, PREMATURE VENTRICULAR COMPLEXES ARE NO LONGER PRESENT Confirmed by LEILANI BERGMAN, RAI ([id number]) on 12/02/2016 4:41:05 PM Referred By: Confirmed By:RAI DUKE MD
--- NOTE | 2016-12-02 17:11 | EKG ---
Test Reason : Blood Pressure : / mmHG Vent. Rate : 106 BPM Atrial Rate : 106 BPM P-R Int : 182 ms QRS Dur : 082 ms QT Int : 336 ms P-R-T Axes : 052 017 031 degrees QTc Int : [address] SEGMENT ELEVATION CANNOT RULE OUT MYOCARDIAL INJURY VS. PERICARDITIS ABNORMAL ECG WHEN COMPARED WITH ECG OF 28-NOV-2016 20:12, NO SIGNIFICANT CHANGE WAS FOUND Confirmed by LEILANI BERGMAN, RAI ([id number]) on 12/02/2016 5:11:24 PM Referred By: ALLIE BECKETT Confirmed By:RAI DUKE MD
--- NOTE | 2016-12-02 17:12 | EKG ---
Test Reason : Blood Pressure : / mmHG Vent. Rate : 115 BPM Atrial Rate : 115 BPM P-R Int : 180 ms QRS Dur : 080 ms QT Int : 308 ms P-R-T Axes : 050 022 037 degrees QTc Int : [address] SEGMENT ELEVATION CANNOT RULE OUT MYOCARIDIAL INJURY VS. PERICARDITIS ABNORMAL ECG WHEN COMPARED WITH ECG OF 28-NOV-2016 19:27, NO SIGNIFICANT CHANGE WAS FOUND Confirmed by LEILANI BERGMAN, RAI ([id number]) on 12/02/2016 5:11:58 PM Referred By: MD SANTILLAN Confirmed By:RAI DUEK MD
--- NOTE | 2016-12-02 17:12 | EKG ---
Test Reason : Blood Pressure : / mmHG Vent. Rate : 113 BPM Atrial Rate : 113 BPM P-R Int : 184 ms QRS Dur : 084 ms QT Int : 324 ms P-R-T Axes : 053 015 038 degrees QTc Int : 444 ms SINUS TACHYCARDIA POSSIBLE LEFT ATRIAL ENLARGEMENT ST SEGMENT ELEVATION CANNOT RULE OUT MYOCARDIAL INJURY VS. PERICARDITIS ABNORMAL ECG NO PREVIOUS ECGS AVAILABLE Confirmed by RAI DUKE MD ([id number]) on 12/02/2016 5:12:36 PM Referred By: MD SANTILLAN Confirmed By:RAI DUKE MD
== END 2016-12-02 15:15 | disposition home or self-care (01) | DRG 641 ==
LOC: FER 10:56 → FM/S 17:58 → OBSVTOIN 11-30 15:58
PROVIDERS: ADMIT Internal Medicine; ATTEND Nurse Practitioner Family
DX: E86.0 Dehydration (principal); I31.9 Disease of pericardium, unspecified; A08.4 Viral intestinal infection, unspecified; R11.2 Nausea with vomiting, unspecified; R19.7 Diarrhea, unspecified; I10 Essential (primary) hypertension; E83.42 Hypomagnesemia; F70 Mild intellectual disabilities; R07.89 Other chest pain; N40.0 Benign prostatic hyperplasia without lower urinary tract symptoms; M94.0 Chondrocostal junction syndrome [Tietze]; R51 Headache
CPT/HCPCS: 36415; 70450-TC; 70486-TC; 71010-TC; 80053; 82550; 83690; 83735; 84100; 84484; 85025; 85027; 85610; 85651; 85730; 86140; 87804; 93005; 93010; 93306-TC; 99283-25; G0378; J1644

== ENCOUNTER 2017-05-12 04:36 | Inpatient (IN) | payer BC ==
--- NOTE | 2017-05-12 04:44 | PDOC ---
History of Present Illness <NormanRafaelJenniferZach - Last Filed: 05/12/17 18:27> - General History Source: Patient Exam Limitations: No Limitations - History of Present Illness Initial Comments: 05/12/17 04:57 This is a 52-year-old male comes in complaining of my sugar is high. Patient said that he's had some intermittent abdominal pain and vomiting over the last 2 days as well. Patient said he vomited 2 yesterday and 2 today most recently at 1 AM. Patient denies any fevers or chills patient is saying that he doesn't feel well. Patient is mentally disabled and used to live at home with his parents however his parents several years ago and the last several years and he now lives alone. Patient says that he has been eating what he is supposed to be eating and doesn't understand why sugars are high. PAST MEDICAL HISTORY diabetes PAST SURGICAL HISTORY: no significant history FAMILY HISTORY: no pertinant history SOCIAL HISTORY: Pt lives with family and is disabled ALLERGIES: As per nursing notes Review of Systems General: No fevers or chills, no weakness, no weight loss HEENT: No change in vision. No sore throat,. No ear pain CardioVascular: No chest pain or shortness of breath Respiratory:No cough, or wheezing. Gastrointestinal: no nausea, +vomitting, diarrhea or constipation, No rectal bleeding Genitourinary: No dysuria, hematuria, or frequency Musculoskeletal: No joint or muscle pain or swelling Neurologic: No headache, vertigo, dizziness or loss of consciousness Psychiatric: nor depression Skin: No rashes or easy bruising Endocrine: no increased thirst or abnormal weight change Allergic: no skin or latex allergy All other systems reviewed and normal Exam: General: Well-nourished well-developed individual, no acute distress HEENT: Throat: Normal, tonsils normal, no erythema or exudate Neck: Supple, no meningeal signs, no lymphadenopathy Eyes::Pupils equal reactive and round, extraocular motion intact Chest: Nontender to palpation Cardiac: S1-S2 normal, regular rate and rhythm, no murmurs rubs or gallops Respiratory: Lungs clear to auscultation bilateral Abdomen: Soft, nondistended, normal bowel sounds, mildly tender to palpation diffusely Extremities: Warm, dry, no cyanosis, clubbing, or edema Skin: No rashes Neuro: Alert and oriented x3, nonfocal exam, grossly intact, normal gait Psych: Normal mood and affect Care of this patient was transferred to Dr. Hampton at 7 AM. CAT scan to rule out renal stones is still pending. Case discussed in detail with oncoming Emergency Physician including history, physical exam and ancillary studies. Oncoming Emergency Physician has assumed care for the patient and will complete the evaluation and treatment. Patient is aware of the plan. Pt is clinically unchanged and stable. <Rupesh Olea I - Last Filed: 05/12/17 23:52> - General Chief Complaint: Blood Sugar Problem Stated Complaint: MY SUGAR IS HIGH Time Seen by Provider: 05/12/17 04:39 Past History <Zach Bernal - Last Filed: 05/12/17 18:27> - Past Medical History Diabetes: Yes HTN: Yes Hypercholesterolemia: Yes - Surgical History Orthopedic Surgery: Yes (RT TOTAL KNEE REPLACEMENT) - Immunization History Immunization Up to Date: No - Psycho/Social/Smoking Cessation Hx Anxiety: No Suicidal Ideation: No Smoking Status: No Smoking History: Never smoked Have you smoked in the past 12 months: No Number of Cigarettes Smoked Daily: 0 Hx Alcohol Use: No Drug/Substance Use Hx: No Substance Use Type: None <Rupesh Olea I - Last Filed: 05/12/17 23:52> - Past Medical History Allergies/Adverse Reactions: Allergies Allergy/AdvReac Type Severity Reaction Status Date / Time pioglitazone HCl [From Actos] AdvReac Unknown Fluid Verified 05/12/17 04:37 retention& Accelerated HTN Home Medications: Ambulatory Orders Cholecalciferol (Vitamin D3) [Vitamin D3] 2,000 unit PO DAILY capsule 12/27/12 Tamsulosin HCl [Flomax -] 0.4 mg PO DAILY #7 capsule 01/09/16 Acetaminophen/Caffeine/Butalb [Fioricet -] 1 tablet PO TID PRN #30 tablet MDD 3 12/02/16 *Physical Exam - Vital Signs Last Vital Signs Temp Pulse Resp BP Pulse Ox 98.3 F 100 H 18 121/78 96 05/12/17 04:37 05/12/17 04:37 05/12/17 04:37 05/12/17 04:37 05/12/17 04:37 <Zach Bernal - Last Filed: 05/12/17 18:27> ED Treatment Course - LABORATORY CBC & Chemistry Diagram: 05/12/17 05:15 05/12/17 05:15 - ADDITIONAL ORDERS Additional order review: Laboratory Results 05/12/17 05/12/17 05/12/17 05:55 05:15 05:15 Sodium Potassium Chloride Carbon Dioxide Anion Gap BUN Creatinine Creat Clearance w eGFR POC Glucometer Random Glucose Calcium Total Bilirubin AST ALT Alkaline Phosphatase Creatine Kinase 43 Cancelled Troponin I < 0.02 Cancelled Total Protein Albumin Urine Color Yellow Urine Appearance Turbid Urine pH 6.0 Urine Protein 2+ H Urine Glucose (UA) Negative Urine Ketones Negative Urine Blood 2+ H Urine Nitrite Negative Urine Bilirubin Negative Urine Urobilinogen Negative Ur Leukocyte Esterase 3+ H Urine RBC 2303 Urine WBC 2028 Urine Bacteria Many 05/12/17 05/12/17 05:15 04:51 Sodium 138 Potassium 3.9 Chloride 100 Carbon Dioxide 30 Anion Gap 8 BUN 12 Creatinine 1.4 H D Creat Clearance w eGFR 53.01 POC Glucometer [phone] Random Glucose 211 H D Calcium 9.4 Total Bilirubin 0.6 AST 16 D ALT 26 Alkaline Phosphatase 112 D Creatine Kinase Troponin I Total Protein 7.5 D Albumin 3.6 D Urine Color Urine Appearance Urine pH Urine Protein Urine Glucose (UA) Urine Ketones Urine Blood Urine Nitrite Urine Bilirubin Urine Urobilinogen Ur Leukocyte Esterase Urine RBC Urine WBC Urine Bacteria 05/12/17 05/12/17 05:15 04:51 RBC 5.02 D MCV 88.4 MCHC 33.3 RDW 13.6 MPV 10.9 Neutrophils % 79.6 Lymphocytes % 11.4 Monocytes % 5.8 Eosinophils % 2.7 Basophils % 0.5 POC Glucometer [phone] - RADIOLOGY Radiology Studies Ordered: Category Date Time Status CHEST X-RAY PORTABLE* [RAD] Stat Radiology 05/12/17 08:19 Completed - Medications Given in the ED: ED Medications Discontinued Medications Generic Name Dose Route Start Last Admin Trade Name Freq PRN Reason Stop Dose Admin Acetaminophen 1,000 mg 05/12/17 08:54 05/12/17 09:11 Ofirmev Injection - IVPB 05/12/17 08:55 1,000 mg ONCE ONE Administration Sodium Chloride 1,000 mls @ 1,000 mls/hr 05/12/17 04:52 05/12/17 05:08 Normal Saline - IV 05/12/17 05:51 1,000 mls/hr .Q1H ONE Administration Ceftriaxone Sodium 1 gm/ 50 mls @ 100 mls/hr 05/12/17 06:48 05/12/17 07:17 Dextrose IVPB 05/12/17 07:17 100 mls/hr ONCE ONE Administration Insulin Human Regular 8 units 05/12/17 05:06 05/12/17 05:09 Novolin R Vial *For Ivpush Or Iv Drip Only* IVPUSH 05/12/17 05:07 8 units ONCE ONE Administration <Zach Bernal - Last Filed: 05/12/17 18:27> - LABORATORY CBC & Chemistry Diagram: 05/12/17 05:15 05/12/17 05:15 <Rupesh Olea I - Last Filed: 05/12/17 23:52> Medical Decision Making - Medical Decision Making 05/12/17 09:45 Patient has had urinary tract infections in the past. Cultures were reviewed. Enterobacter sensitive to quinolones Dr. Heller consulted by phone, infectious disease. Recommended treatment with Levaquin. Dr. Yang consulted from urology. He will see the patient at [facility] and consider stenting. He is aware of the CT findings and the patient's diabetes. He is also aware of the antibiotic administration Patient clinically and hemodynamically stable at time of transport to [facility] , in no acute distress. <Zach Bernal - Last Filed: 05/12/17 18:27> *DC/Admit/Observation/Transfer - Discharge Dispostion Admit: Yes <Zach Bernal - Last Filed: 05/12/17 18:27> <Rupesh Olea I - Last Filed: 05/12/17 23:52> Diagnosis at time of Disposition: Hydronephrosis with renal and ureteral calculus obstruction, Pyelonephritis - Discharge Dispostion Condition at time of disposition: Stable
[2017-05-12] MEDS ORDERED: SODIUM CHLORIDE 1,000 ML IV ONE (04:52)
[2017-05-12] MEDS ORDERED: INSULIN REGULAR HUMAN 100 UNITS/ML *VIAL IVPUSH ONE (05:06)
[2017-05-12] MEDS ORDERED: INSULIN REGULAR HUMAN 100 UNITS/ML *VIAL ONE (05:08)
[2017-05-12] MEDS ORDERED: HEMOQUE TEST 1 EACH EACH ONE (05:18)
[2017-05-12 05:59] LABS: BASOPHIL 0.5 % (0-2.0); EOSINOPHIL 2.7 % (0-4.5); MCH 29.4 pg (25.7-33.7); MCHC 33.3 g/dl (32.0-35.9); MEAN CELL VOLUME 88.4 fl (80-96); MEAN PLT VOLUME 10.9 fl (7.5-11.1); NEUTROPHILS 79.6 % (42.8-82.8); PLATELET COUNT 207 K/MM3 (134-434); RDW 13.6 % (11.9-15.9); WHITE BLOOD COUNT 16.6 K/mm3 (4.0-10.0)
[2017-05-12 06:08] LABS: ALBUMIN 3.6 g/dl (3.4-5.0); ALK PHOS 112 U/L (45-117); ANION GAP 8 (8-16); BILIRUBIN,TOTAL 0.6 mg/dL (0.2-1.0); CALCIUM 9.4 mg/dL (8.5-10.1); CO2 30 mmol/L (21-32); CREATININE 1.4 mg/dL (0.7-1.3); GLUCOSE,RANDOM 211 mg/dL (74-106); SGOT/AST 16 U/L (15-37); SGPT/ALT 26 U/L (12-78); TOT PROT 7.5 g/dl (6.4-8.2)
[2017-05-12 06:17] LABS: TROPONIN I < 0.02 ng/ml (0.00-0.05)
[2017-05-12 06:46] LABS: URINE APPEARANCE TURBID; URINE BILIRUBIN NEGATIVE (NEGATIVE); URINE BLOOD 2+ (NEGATIVE); URINE COLOR YELLOW; URINE GLUCOSE (UA) NEGATIVE (NEGATIVE); URINE KETONE NEGATIVE (NEGATIVE); URINE LEUK ESTERASE 3+ (NEGATIVE); URINE NITRITE NEGATIVE (NEGATIVE); URINE PROTEIN 2+ (NEGATIVE); URINE UROBILINOGEN NEGATIVE E.U./dl (0.2-1.0)
[2017-05-12] MEDS ORDERED: CEFTRIAXONE 1 GM in DEXTROSE 5%-WATER - 50 ML IVPB ONE (06:48)
[2017-05-12 06:49] LABS: URINE BACTERIA MANY /hpf (NONE SEEN); URINE RBC 2303 /hpf (0-3); URINE WBC 2028 /hpf (3-5)
[2017-05-12] MEDS ORDERED: cefTRIAXone SODIUM 1 GM VIAL ONE (07:09)
[2017-05-12] MEDS ORDERED: SODIUM CHLORIDE 1,000 ML IV STA (08:53)
[2017-05-12] MEDS ORDERED: ACETAMINOPHEN 1000 MG/100 ML VIAL (NON FORMULARY) IVPB ONE (08:54)
[2017-05-12] MEDS ORDERED: ACETAMINOPHEN INJECTION 100 ML IVPB ONE (08:56)
[2017-05-12] MEDS ORDERED: LEVOFLOXACIN 500 MG IVPB 100 ML IVPB ONE ×2 (09:45→09:56)
[2017-05-12 15:27] VITALS: BMI 33.6
--- NOTE | 2017-05-12 16:34 | HP ---
CHIEF COMPLAINT: nausea and vomiting HISTORY OF PRESENT ILLNESS: This is a 52 man with PMH DM and right TKR '16 who presents today with nausea and vomiting since waking up this AM. He endorses urinary frequency. He denies chest pain, cough, rhinorrhea, fevers, SOB, dizziness, dysuria or abdominal pain. ER course was notable for: (1) CTAP- 10mm stone in RUVJ (2) pyuria Recent Travel: denies PAST MEDICAL HISTORY: see HPI PAST SURGICAL HISTORY: see HPI Social History: Smoking: denies Alcohol: denies Drugs: denies Family History: father with DM Allergies pioglitazone HCl [From Pruffi] Adverse Reaction (Unknown, Verified 05/12/17 04:37 ) Fluid retention& Accelerated HTN HOME MEDICATIONS: Home Medications 3 Medication Instructions Recorded Cholecalciferol (Vitamin D3) 2,000 unit PO DAILY capsule 12/27/12 [Vitamin D3] Tamsulosin HCl [Flomax -] 0.4 mg PO DAILY #7 capsule 01/09/16 Acetaminophen/Caffeine/Butalb 1 tablet PO TID PRN #30 tablet MDD 12/02/16 [Fioricet -] 3 REVIEW OF SYSTEMS CONSTITUTIONAL: Absent: fever, chills, diaphoresis, generalized weakness, malaise, loss of appetite, weight change HEENT: Absent: rhinorrhea, nasal congestion, throat pain, throat swelling, difficulty swallowing, mouth swelling, ear pain, eye pain, visual changes CARDIOVASCULAR: Absent: chest pain, syncope, palpitations, irregular heart rate, lightheadedness , peripheral edema RESPIRATORY: Absent: cough, shortness of breath, dyspnea with exertion, orthopnea, wheezing, stridor, hemoptysis GASTROINTESTINAL: Present- nausea, vomiting Absent: abdominal pain, abdominal distension, diarrhea, constipation, melena, hematochezia GENITOURINARY: Present- frequency Absent: dysuria, urgency, hesitancy, hematuria, flank pain, genital pain MUSCULOSKELETAL: Absent: myalgia, arthralgia, joint swelling, back pain, neck pain SKIN: Absent: rash, itching, pallor HEMATOLOGIC/IMMUNOLOGIC: Absent: easy bleeding, easy bruising, lymphadenopathy, frequent infections ENDOCRINE: Absent: unexplained weight gain, unexplained weight loss, heat intolerance, cold intolerance NEUROLOGIC: Absent: headache, focal weakness or paresthesias, dizziness, unsteady gait, seizure, mental status changes, bladder or bowel incontinence PSYCHIATRIC: Absent: anxiety, depression, suicidal or homicidal ideation, hallucinations. PHYSICAL EXAMINATION Vital Signs - 24 hr 3 05/12/17 15:21 Temperature 97.8 F Pulse Rate 107 H Respiratory 20 Rate Blood Pressure 154/86 GENERAL: Awake, alert, and fully oriented, in no acute distress. HEAD: Normal with no signs of trauma. EYES: Pupils equal, round and reactive to light, extraocular movements intact, sclera anicteric, conjunctiva clear. No lid lag. EARS, NOSE, THROAT: Ears normal, nares patent, oropharynx clear without exudates. Moist mucous membranes. NECK: Normal range of motion, supple without lymphadenopathy, JVD, or masses. LUNGS: Breath sounds equal, clear to auscultation bilaterally. No wheezes, and no crackles. No accessory muscle use. HEART: Regular rate and rhythm, normal S1 and S2 without murmur, rub or gallop. ABDOMEN: Soft, nontender, not distended, normoactive bowel sounds, no guarding, no rebound, no masses. No hepatomegaly or splenomegaly. MUSCULOSKELETAL: Normal range of motion at all joints. No bony deformities or tenderness. Right CVA tenderness. UPPER EXTREMITIES: 2+ pulses, warm, well-perfused. No cyanosis. No clubbing. No peripheral edema. LOWER EXTREMITIES: 2+ pulses, warm, well-perfused. No calf tenderness. No peripheral edema. NEUROLOGICAL: Cranial nerves II-XII intact. Normal speech. Normal gait. PSYCHIATRIC: Cooperative. Good eye contact. Appropriate mood and affect. SKIN: Warm, dry, normal turgor, no rashes or lesions noted, normal capillary refill. ASSESSMENT/PLAN: A: 52 yo man with pyelonephritis r/t obstructing 10mm renal calculi at the right UVJ P: 1. Pyelonephritis - urine cx pending - Urology Celia aware - Levaquin 500mg daily - strain urine - trend fever curve - tylenol for fevers - morphine 2mg prn - Flomax 0.4 2. DM - hold nephrotoxic meds - FS qACHS - ISS 3. F/E/N - diabetic low Na diet - NPO after MN - replete prn - NS@50 after MN 4. PPX - OOB as tolerated Dispo- requires inpatient admission for his acute medical conditions Visit type - Emergency Visit Emergency Visit: Yes ED Registration Date: 05/12/17 Care time: The patient presented to the Emergency Department on the above date and was hospitalized for further evaluation of their emergent condition. - New Patient This patient is new to me today: Yes Date on this admission: 05/15/17 - Critical Care Critical Care patient: No
--- NOTE | 2017-05-12 16:44 | PN ---
Progress Note (short form) - Note Progress Note: ID Consult dictated Asked by Dr Bernal to consult on this 52 y/o diabetic with hx recurrent quinolone-sensitive Enterobacter UTIs. CT shows obstructing R nephrolith. Await c/s Urology evaluation Empiric levaquin
[2017-05-12] MEDS: INSULIN SLIDING SCALE (NOVOLOG) 1 VIAL SQ SCH ×2 (17:24→21:13)
--- NOTE | 2017-05-12 17:29 | CONS ---
DATE OF CONSULTATION: 05/12/2017 INFECTIOUS DISEASE CONSULTATION HISTORY OF PRESENT ILLNESS: The patient is a 52-year-old mentally challenged male with a history of diabetes mellitus evaluated for urinary tract infection. The patient presented to the hospital with complaints of abdominal pain, nausea and vomiting for 2 days prior to admission. He also noted high blood sugars at home. He presented to the emergency room where urinalysis showed many white cells and many red cells. A CAT abdomen and pelvis was performed and showed an obstructing right nephrolith. The renal stone was at the right UV junction. He denies any flank pain. No complaints of dysuria or hematuria. He did not notice any gross hematuria. He denies any fever or chills. The patient denies prior history of nephrolithiasis. He has had a history of urinary tract infections in the past. Review of previous urine cultures he had consistently grown Enterobacter aerogenes which has been quinolone sensitive. PAST MEDICAL HISTORY: Positive for diabetes mellitus and mild mental retardation, history of recurrent urinary tract infections. PAST SURGICAL HISTORY: Status post right total knee replacement. ALLERGIES: ACTOS. MEDICATIONS: Include vitamin D, Flomax, Fioricet, insulin. SOCIAL HISTORY: The patient lives at home with his brother. He is a nonsmoker, nondrinker. REVIEW OF SYSTEMS: Neurologic: No loss of consciousness, seizure activity, focal weakness. Cardiac: Negative for chest pain or palpitations. Respiratory: Negative for cough or sputum production. Gastrointestinal: A per HPI. Genitourinary: As per HPI. LABORATORY DATA: White count is 16.6, 79 neutrophils, 11 lymphocytes, 5 monocytes, hematocrit 44.3, platelet count 207. BUN 12, creatinine 1.4. Liver enzymes normal. Urinalysis showed 2028 white cells, 2303 red cells. Chest x-ray negative. PHYSICAL EXAMINATION: General: Awake and alert and is not acutely toxic appearing. Vital signs: Temperature 97.8, temperature 97.8, blood pressure 154/86, pulse 107 regular, respirations 20 per minute. HEENT: Sclerae anicteric. Heart: S1, S2. Lungs: Clear. Abdomen: Soft, nontender, no suprapubic or flank tenderness. Extremities: Negative for edema. IMPRESSION: 1. Urinary tract infection possible sepsis secondary to urinary tract infection. 2. Nephrolithiasis with right ureteral obstruction. 3. Diabetes mellitus. 4. History of recurrent urinary tract infections. PLAN: Pending cultures continue Levaquin 500 mg IV piggyback every 24 hours, urology evaluation for possible cystoscopy and ureteral stent, will follow. Thank you for the kind referral. SMITH DOMINGO M.D. [id number]
[2017-05-12] MEDS ORDERED: ACETAMINOPHEN 325 MG TABLET (FP) PO ONE (20:23)
[2017-05-12] MEDS ORDERED: SODIUM CHLORIDE NASAL SPRAY 44 ML BOTTLE NS PRN (20:23)
[2017-05-12] MEDS: HEPARIN NA (PORCINE) 5,000 UNITS/ML 1ML VIAL SQ SCH (21:13)
[2017-05-13] MEDS: INSULIN SLIDING SCALE (NOVOLOG) 1 VIAL SQ SCH ×4 (06:26→21:23)
[2017-05-13 07:54] LABS: BASOPHIL 0.9 % (0-2.0); EOSINOPHIL 4.7 % (0-4.5); MCH 30.8 pg (25.7-33.7); MCHC 34.6 g/dl (32.0-35.9); MEAN PLT VOLUME 10.2 fl (7.5-11.1); NEUTROPHILS 71.1 % (42.8-82.8); PLATELET COUNT 166 K/MM3 (134-434); RDW 13.6 % (11.9-15.9); WHITE BLOOD COUNT 9.8 K/mm3 (4.0-10.0)
[2017-05-13 08:42] LABS: ANION GAP 9 (8-16); CALCIUM 8.7 mg/dL (8.5-10.1); CO2 30 mmol/L (21-32); CREATININE 1.2 mg/dL (0.7-1.3); GLUCOSE,RANDOM 184 mg/dL (74-106)
[2017-05-13] MEDS ORDERED: LISINOPRIL 5 MG TABLET (FP) PO SCH (10:00)
[2017-05-13] MEDS ORDERED: LEVOFLOXACIN 500 MG IVPB 100 ML IVPB ONE (10:00)
[2017-05-13] MEDS: HEPARIN NA (PORCINE) 5,000 UNITS/ML 1ML VIAL SQ SCH ×2 (10:29→21:19)
--- NOTE | 2017-05-13 13:00 | PN ---
Progress Note (short form) - Note Progress Note: previous notes reviewed no complaints for cystoscopy and stent placement later today no fevers, no abd pain Vital Signs Period Temp Pulse Resp BP Sys/Carias Pulse Ox Last 24 Hr 97.6 F-99.2 F 80-107 16-20 118-154/78-86 cor-rrr llungs clear abd soft,nt ext no edema CBC, BMP 05/13/17 07:40 05/13/17 07:40 Microbiology 05/12/17 08:44 Urine - Urine Clean Catch Urine Culture - Preliminary Lactose Fermenting Neg Bacilli 05/12/17 08:20 Blood - Peripheral Venous Blood Culture - Preliminary NO GROWTH OBTAINED AFTER 24 HOURS, INCUBATION TO CONTINUE FOR 4 DAYS. 05/12/17 08:36 Blood - Peripheral Venous Blood Culture - Preliminary NO GROWTH OBTAINED AFTER 24 HOURS, INCUBATION TO CONTINUE FOR 4 DAYS. a/p uti right hydronephrosis secondary to right ureterovesicle stone to continue levaquin, wbc has responded, f/u cultures urology f/u
--- NOTE | 2017-05-13 13:06 | CON.GU ---
Consult Consult Specialty:: urology Referred by:: medicine Reason for Consultation:: ureteral calculus - History of Present Illness Chief Complaint: nausea/vomiting History of Present Illness: 52 year old male, known to me as an outpatient with a history of nephrolithiasis presents to [facility] with nausea and vomiting. CT scan reveals a 10mm UVJ stone with proximal hydroureteronephrosis. He is afebrile and WBC has normalized since admission. He is currently comfortable - History Source History Provided By: Patient, Medical Record Limitations to Obtaining History: No Limitations - Past Medical History Cardio/Vascular: Yes: HTN Renal/: Yes: Renal Calculi Musculoskeletal: Yes: Other (knee issuesa) Endocrine: Yes: Diabetes Mellitus - Past Surgical History Past Surgical History: Yes: Joint Replacement (right knee, 05/01), Tonsillectomy - Alcohol/Substance Use Hx Alcohol Use: No History of Substance Use: reports: None - Smoking History Smoking history: Never smoked Have you smoked in the past 12 months: No Aproximately how many cigarettes per day: 0 - Social History Usual Living Arrangement: Alone ADL: Independent History of Recent Travel: No Home Medications - Allergies Allergies/Adverse Reactions: Allergies Allergy/AdvReac Type Severity Reaction Status Date / Time pioglitazone HCl [From Actos] AdvReac Unknown Fluid Verified 05/12/17 04:37 retention& Accelerated HTN - Home Medications Home Medications: Ambulatory Orders Cholecalciferol (Vitamin D3) [Vitamin D3] 2,000 unit PO DAILY capsule 12/27/12 Tamsulosin HCl [Flomax -] 0.4 mg PO DAILY #7 capsule 01/09/16 Acetaminophen/Caffeine/Butalb [Fioricet -] 1 tablet PO TID PRN #30 tablet MDD 3 12/02/16 Review of Systems - Review of Systems Constitutional: denies: Fever Gastrointestinal: reports: Nausea, Vomiting Genitourinary: reports: Frequency. denies: Flank Pain, Hematuria Physical Exam- Vital Signs: Vital Signs Temperature 97.6 F 05/13/17 08:44 Pulse Rate 81 05/13/17 08:44 Respiratory Rate 18 05/13/17 08:44 Blood Pressure 118/78 05/13/17 08:44 O2 Sat by Pulse Oximetry (%) 96 05/12/17 11:14 Constitutional: Yes: Well Nourished, No Distress, Calm Gastrointestinal: Yes: Soft Renal/: No: Bladder Distention, CVA Tenderness - Left, CVA Tenderness - Right , Lechuga Present, Hematuria Labs: CBC, BMP 05/13/17 07:40 05/13/17 07:40 Imaging - Results Cat Scan: Report Reviewed Problem List - Problems (1) Calculus of ureter Assessment/Plan: patient is feeling better but the stone is likely too large to pass. No gross sepsis. Offering ureteroscopic laser lithotripsy and stent placement today. Please keep NPO and pre operative medical clearance is requested. Code(s): N20.1 - CALCULUS OF URETER
--- NOTE | 2017-05-13 14:26 | CON.GU ---
Consult Consult Specialty:: Urology Referred by:: Fredy Reason for Consultation:: R UVJ calculus - History of Present Illness Chief Complaint: N V History of Present Illness: 52 yo m w hx nephrolithiasis adm 05/12/17 c/o N , V and abd pain found to have 10 mm R UVJ calculus w hydronephrosis and perinephric stranding, leukocytosis and UTI. cons req. - History Source History Provided By: Patient, Medical Record Limitations to Obtaining History: No Limitations - Past Medical History Cardio/Vascular: Yes: HTN Renal/: Yes: Renal Calculi, UTI Musculoskeletal: Yes: Other (knee issuesa) Endocrine: Yes: Diabetes Mellitus - Past Surgical History Past Surgical History: Yes: Joint Replacement (right knee, 05/01), Tonsillectomy - Alcohol/Substance Use Hx Alcohol Use: No History of Substance Use: reports: None - Smoking History Smoking history: Never smoked Have you smoked in the past 12 months: No Aproximately how many cigarettes per day: 0 - Social History Usual Living Arrangement: Alone ADL: Independent History of Recent Travel: No Home Medications - Allergies Allergies/Adverse Reactions: Allergies Allergy/AdvReac Type Severity Reaction Status Date / Time pioglitazone HCl [From Actos] AdvReac Unknown Fluid Verified 05/12/17 04:37 retention& Accelerated HTN - Home Medications Home Medications: Ambulatory Orders Cholecalciferol (Vitamin D3) [Vitamin D3] 2,000 unit PO DAILY capsule 12/27/12 Tamsulosin HCl [Flomax -] 0.4 mg PO DAILY #7 capsule 01/09/16 Acetaminophen/Caffeine/Butalb [Fioricet -] 1 tablet PO TID PRN #30 tablet MDD 3 12/02/16 Review of Systems - Review of Systems Genitourinary: reports: Frequency Physical Exam- Vital Signs: Vital Signs Temperature 97.8 F 05/13/17 14:01 Pulse Rate 94 H 05/13/17 14:01 Respiratory Rate 18 05/13/17 09:00 Blood Pressure 107/66 05/13/17 14:01 O2 Sat by Pulse Oximetry (%) 96 05/12/17 11:14 Gastrointestinal: Yes: WNL, Normal Bowel Sounds, Soft Renal/: Yes: WNL Labs: CBC, BMP 05/13/17 07:40 06/28/17 07:40 Imaging - Results Cat Scan: Report Reviewed Assessment/Plan Imp: 10 mm R distal ureteral calculus. R hydronephrosis, UTI Rec: await sensitivities for ur c+s, cont iv abxs, flomax,cystoscopy and R JJ stent insertion, then RULL after uti resolved.
--- NOTE | 2017-05-13 14:47 | HP ---
History & Physical Update - History History: No Change - Physical Physical: No Change - Assessment Assessment: No Change - Plan Plan: No Change
--- NOTE | 2017-05-13 15:26 | PN ---
Physical Exam: SUBJECTIVE: Patient seen and examined at bedside. No overnight events. No new complaints. Flank pain improved. Denies CP, BOTELLO, SOB, abd.pain, N/V. OBJECTIVE: Vital Signs Period Temp Pulse Resp BP Sys/Carias Pulse Ox Last 24 Hr 97.6 F-99.2 F 80-98 16-20 107-147/66-79 GENERAL: AAOx3 , NAD HEAD: NC/AT EYES: PERRL, EOMI, sclera anicteric, conjunctiva clear. No ptosis. ENT: moist mucous membranes. NECK: Supple, No JVD LUNGS: CTAB, no wheezing or rales. HEART: RRR, no M/G/R ABDOMEN: Soft, nontender, nondistended, normoactive bowel sounds, no guarding, no rebound, no CVA tenderness EXTREMITIES: 2+ pulses, warm, well-perfused, no edema. NEUROLOGICAL: Cranial nerves II through XII grossly intact. Normal speech, gait not observed. Laboratory Results - last 24 hr 05/12/17 05/12/17 05/13/17 17:00 21:10 05:33 WBC RBC Hgb Hct MCV MCHC RDW Plt Count MPV Neutrophils % Lymphocytes % Monocytes % Eosinophils % Basophils % Sodium Potassium Chloride Carbon Dioxide Anion Gap BUN Creatinine POC Glucometer 164 182 182 Random Glucose Calcium 05/13/17 05/13/17 05/13/17 07:40 07:40 11:36 WBC 9.8 D RBC 4.53 Hgb 14.0 Hct 40.4 MCV 89.0 MCHC 34.6 RDW 13.6 Plt Count 166 MPV 10.2 Neutrophils % 71.1 Lymphocytes % 14.8 D Monocytes % 8.5 Eosinophils % 4.7 H Basophils % 0.9 Sodium 141 Potassium 4.2 Chloride 102 Carbon Dioxide 30 Anion Gap 9 BUN 8 D Creatinine 1.2 POC Glucometer 174 Random Glucose 184 H Calcium 8.7 Active Medications Generic Name Dose Route Start Last Admin Trade Name Freq PRN Reason Stop Dose Admin Heparin Sodium (Porcine) 5,000 unit 05/12/17 22:00 05/13/17 10:29 Heparin - SQ 5,000 unit BID MIR Administration Levofloxacin 100 mls @ 100 mls/hr 05/14/17 10:00 Levaquin 500 Mg Premixed Ivpb - IVPB DAILY [facility] Insulin Aspart 1 vial 05/12/17 16:30 05/13/17 11:39 Novolog Vial Sliding Scale - SQ Not Given ACHS MIR Protocol Sodium Chloride 2 spray 05/12/17 20:23 05/13/17 06:27 [place] Donora Nasal Donora - NS 2 spray BID PRN Administration NASAL CONGESTION ASSESSMENT/PLAN: 52 y/o man with h/o DM , nephrolithiasis , who presneted with abd pain admitted for sepsis secondary to UTI with RUVJ obstructing stone and hydronephrosis. Problem List - Problems (1) Sepsis Assessment/Plan: * Secondary to pyelonephritis. * IVF with NS * Culture pending * Continue with Levaquin * ID consult appreciated. (2) Pyelonephritis Assessment/Plan: * RUVJ stone noted of CT abdomen * Cystoscopy with stent placement today * continue Levaquin and IVF * Continue Flomax. * Urology consult appreciated. (3) Diabetes mellitus Assessment/Plan: * ADA diet. * NISS ACHS * BGM ACHS (4) HTN (hypertension) Assessment/Plan: * Continue Lisinopril 5mg PO daily Visit type - Emergency Visit Emergency Visit: Yes ED Registration Date: 05/12/17 Care time: The patient presented to the Emergency Department on the above date and was hospitalized for further evaluation of their emergent condition. - New Patient This patient is new to me today: Yes Date on this admission: 05/13/17 - Critical Care Critical Care patient: No - Discharge Referral Referred to [facility] Med P.C.: No
--- NOTE | 2017-05-13 16:54 | OP ---
Operative Note - Note: Operative Date: 05/13/17 Pre-Operative Diagnosis: R ureteral calculus, R hydronephrosis, UTI Operation: cystoscopy R JJ stent insertion Findings: R distal ureteral calculus, R hydronephrosis Post-Operative Diagnosis: Same as Pre-op Surgeon: Ari Yang Anesthesiologist/DIETITIAN CHIEF: Elfego Costa Anesthesia: General Estimated Blood Loss (mls): 0 Drains & Tubes with Location: 6 fr 26 cm R JJ stent Operative Report Dictated: Yes
[2017-05-13] MEDS ORDERED: ceFAZolin SODIUM 1 GM VIAL IVPB ONE (17:22)
[2017-05-13] MEDS ORDERED: MIDAZOLAM HCL 2 MG/2 ML SINGLE DOSE VIAL ONE (17:25)
[2017-05-13] MEDS ORDERED: PHENYLEPHRINE HCL 10 MG/1 ML SINGLE DOSE VIAL ONE (17:36)
[2017-05-13] MEDS ORDERED: ACETAMINOPHEN/CAFFEINE/BUTALBITAL 1 TAB PO PRN (17:39)
[2017-05-13] MEDS ORDERED: PATIENT'S OWN MEDICATION (NON-FORMULARY) (Dulaglutide [Trulicity] 1.5 MG) SQ SCH (17:45)
[2017-05-13] MEDS ORDERED: ONDANSETRON 4 MG/2 ML VIAL IVPUSH PRN (17:50)
--- NOTE | 2017-05-13 18:24 | PN ---
Teaching Attending Note Name of Resident: Silverio Vargas ATTENDING PHYSICIAN STATEMENT I saw and evaluated the patient. I reviewed the resident's note and discussed the case with the resident. I agree with the resident's findings and plan as documented. SUBJECTIVE: no fever or chills, feels better , has no abd pain OBJECTIVE: NA D Cv : RRR Lungs: CTAB ext : no edema Abd : soft, NT, ND , NL BS no CVA tenderness ASSESSMENT AND PLAN: 52 y/o man withh/o DM , nephrolithiasis , who presneted with abd pain and was found to have R UVJ obstructing stone with hydronephrosis and UTI 1- L UVJ obstructing stone : Uro c/s appreciated cystoscopy today with stent placement IV hydration decrease IVF 2- UTI . sepsis : cont levaquin . previous cx with enterobacter. now cx growing lactose fermenting G- 3- DM : cont glipizide dispo : pending urine cx .
[2017-05-13] MEDS ORDERED: SODIUM CHLORIDE NASAL SPRAY 44 ML BOTTLE NS PRN (18:29)
[2017-05-13] MEDS ORDERED: SODIUM CHLORIDE 1,000 ML IV SCH (18:45)
--- NOTE | 2017-05-13 20:01 | OP ---
DATE OF OPERATION: 05/13/2017 PREOPERATIVE DIAGNOSIS: Right ureteral calculus, right hydronephrosis. POSTOPERATIVE DIAGNOSIS: Right ureteral calculus, right hydronephrosis. PROCEDURE: Cystoscopy, right JJ stent insertion. SURGEON: Ari Yang MD DOG TRACK KENNEL MANAGER: None. ANESTHESIA: Spinal. ANESTHESIOLOGIST: Igor. SPECIMENS: None. CULTURES: None. DRAINS: None. ESTIMATED BLOOD LOSS: None. COMPLICATIONS: None. DESCRIPTION OF PROCEDURE: The patient was brought into the operating room and placed on the operating table in the supine position. After administration of intravenous antibiotics, spinal anesthesia was administered. The patient was placed in the dorsal lithotomy position and the urethral meatus was dilated from 22-Trinidadian to 26-Trinidadian with sounds. A 22-Trinidadian cystoscope was inserted into the anterior urethra under direct vision. The anterior urethra was normal. The prostatic urethra was normal. The bladder was entered and urine was evacuated. A 30-degree telescope was used and cystoscopy was performed. This demonstrated no foreign bodies, tumor, stones, or inflammation. Both ureteral orifices were in their usual location with diminished efflux in the right ureteral orifice. The right ureteral orifice was cannulated with a 0.0.38 guidewire and with difficulty, it was advanced to the level of the right renal pelvis under fluoroscopic and direct visual guidance. Retrograde pyelogram was done and demonstrated right hydroureteronephrosis down to an obstructing radiopaque 1 cm distal ureteral calculus just proximal to the ureterovesical junction. The guidewire was left in place and 6-Trinidadian 26 cm right JJ stent inserted over the guidewire under direct visual and fluoroscopic guidance leaving one coil in the renal pelvis and one coil in the bladder. The bladder was emptied. Instruments were removed. The patient tolerated the procedure well and was transferred to the recovery room in stable condition. PLAN: Followup for ureteroscopic laser lithotripsy after his UTI is resolved. Michael [id number]
[2017-05-13] MEDS: FLUTICASONE PROP 0.05% 16 GM NASAL SPRAY NS SCH (21:19)
[2017-05-13] MEDS ORDERED: INSULIN (NOVOLOG) ASPART 100 UNITS/ML 10ML VIAL ONE (21:22)
[2017-05-13] MEDS ORDERED: PATIENT'S OWN MEDICATION (NON-FORMULARY) (Metformin Hcl [Glucophage] 1,000 MG) PO SCH (22:00)
[2017-05-14] MEDS: INSULIN SLIDING SCALE (NOVOLOG) 1 VIAL SQ SCH ×2 (06:52→11:54)
[2017-05-14] MEDS ORDERED: glipiZIDE 10 MG TABLET (FP) PO SCH (07:00)
[2017-05-14 07:47] LABS: BASOPHIL 0.9 % (0-2.0); EOSINOPHIL 4.3 % (0-4.5); MCH 30.4 pg (25.7-33.7); MCHC 34.2 g/dl (32.0-35.9); MEAN CELL VOLUME 88.8 fl (80-96); MEAN PLT VOLUME 10.3 fl (7.5-11.1); NEUTROPHILS 69.3 % (42.8-82.8); PLATELET COUNT 180 K/MM3 (134-434); RDW 13.8 % (11.9-15.9); WHITE BLOOD COUNT 8.7 K/mm3 (4.0-10.0)
[2017-05-14 08:01] LABS: ANION GAP 6 (8-16); CALCIUM 8.8 mg/dL (8.5-10.1); CO2 31 mmol/L (21-32); CREATININE 1.1 mg/dL (0.7-1.3); GLUCOSE,RANDOM 159 mg/dL (74-106)
[2017-05-14] MEDS ORDERED: PT OWN MED DRAWER 7, Y5N ONE ×2 (09:01→12:09)
[2017-05-14] MEDS: HEPARIN NA (PORCINE) 5,000 UNITS/ML 1ML VIAL SQ SCH (09:06)
[2017-05-14] MEDS: FLUTICASONE PROP 0.05% 16 GM NASAL SPRAY NS SCH (09:08)
[2017-05-14] MEDS ORDERED: LEVOFLOXACIN 500 MG IVPB 100 ML IVPB SCH ×2 (10:00)
[2017-05-14] MEDS ORDERED: TAMSULOSIN HCL 0.4 MG CAP.ER.24H (FP) PO SCH (10:00)
[2017-05-14 13:46] VITALS: BP 111/88; PULSE 95; TEMP 97.6
--- NOTE | 2017-05-14 14:02 | PN ---
Progress Note (short form) - Note Progress Note: Anesthesia postop note 52 y/o M s/p spinal anesthesia for cystoscopy POD#1, vss, aaox3, awaiting discharge No anesthesia complications.
--- NOTE | 2017-05-14 14:07 | PN ---
Teaching Attending Note Name of Resident: Silverio Vargas ATTENDING PHYSICIAN STATEMENT I saw and evaluated the patient. I reviewed the resident's note and discussed the case with the resident. I agree with the resident's findings and plan as documented. SUBJECTIVE: no pain, no fever or chills,. has no abd pain OBJECTIVE: NA D Cv : RRR Lungs: CTAB ext : no edema Abd : soft, NT, ND , NL BS no CVA tenderness ASSESSMENT AND PLAN: 52 y/o man with h/o DM , nephrolithiasis , who presented with abd pain and was found to have R UVJ obstructing stone with hydronephrosis and UTI 1- L UVJ obstructing stone : S/P cystoscopy stent placement f/u with uro as out pt 2- Complicated UTI. sepsis : U cx with enterobacter sensitive to levaquin. blood cx with no growth x 48 hr cont levaquin orally for total of 10 days 3- DM : cont glipizide dispo : dc home . Microbiology 05/12/17 08:44 Urine Culture - Preliminary Urine - Urine Clean Catch Enterobacter Aerogenes 05/12/17 08:20 Blood Culture - Preliminary Blood - Peripheral Venous NO GROWTH OBTAINED AFTER 48 HOURS, INCUBATION TO CONTINUE FOR 3 DAYS. 05/12/17 08:36 Blood Culture - Preliminary Blood - Peripheral Venous NO GROWTH OBTAINED AFTER 48 HOURS, INCUBATION TO CONTINUE FOR 3 DAYS.
--- NOTE | 2017-05-14 14:47 | DS ---
Physical Exam: SUBJECTIVE: Patient seen and examined at bedside. POD#1 s/p Uretral stent placement. No overnight events. No new complaints. Denies CP,BOTELLO, SOB, abd. pain , N/V. OBJECTIVE: Vital Signs Period Temp Pulse Resp BP Sys/Carias Pulse Ox Last 24 Hr 97.5 F-98.6 F 80-95 16-20 102-157/60-96 96-99 PHYSICAL EXAM GENERAL:AAOx3, NAD HEAD: NC/AT EYES: PERRL, EOMI, sclera anicteric, conjunctiva clear. ENT: moist mucous membranes. NECK: Supple, No JVD LUNGS: CTAB , no wheezing or rales. HEART: RRR, S1S2 no M/G/R ABDOMEN: Soft, nt, nd, normoactive BS , no masses EXTREMITIES: 2+ pulses, warm, well-perfused, no edema. NEUROLOGICAL: Cranial nerves II through XII grossly intact. Mild MR,Normal speech, gait not observed.PSYCH: Normal mood, normal affect. LABS Laboratory Results - last 24 hr 05/13/17 05/13/17 05/14/17 19:13 21:10 05:46 WBC RBC Hgb Hct MCV MCHC RDW Plt Count MPV Neutrophils % Lymphocytes % Monocytes % Eosinophils % Basophils % Sodium Potassium Chloride Carbon Dioxide Anion Gap BUN Creatinine POC Glucometer 122 198 168 Random Glucose Lactic Acid Calcium 05/14/17 05/14/17 05/14/17 06:55 06:55 06:55 WBC 8.7 RBC 4.50 Hgb 13.7 Hct 39.9 MCV 88.8 MCHC 34.2 RDW 13.8 Plt Count 180 MPV 10.3 Neutrophils % 69.3 Lymphocytes % 18.6 D Monocytes % 6.9 Eosinophils % 4.3 Basophils % 0.9 Sodium 138 Potassium 3.8 Chloride 101 Carbon Dioxide 31 Anion Gap 6 L BUN 8 Creatinine 1.1 POC Glucometer Random Glucose 159 H Lactic Acid 1.0 Calcium 8.8 05/14/17 11:40 WBC RBC Hgb Hct MCV MCHC RDW Plt Count MPV Neutrophils % Lymphocytes % Monocytes % Eosinophils % Basophils % Sodium Potassium Chloride Carbon Dioxide Anion Gap BUN Creatinine POC Glucometer 122 Random Glucose Lactic Acid Calcium IMAGING: * EXAM#: TYPE/EXAM: RESULT: [id number] CT/ABDOMEN PELVIS CT W/O CONTR CT of the Abdomen and Pelvis CLINICAL HISTORY: Rule out stones A CT of the abdomen and pelvis was performed without oral or IV contrast. Contiguous 3 mm slices were obtained from the lung bases to the ischial tuberosities. The examination reveals the visualized lung bases to be unremarkable. No pericardial effusion is seen. No pleural effusion is noted. The visualized liver, spleen, bilateral adrenal glands and pancreas. A calculus is noted within the gallbladder. There is no evidence of dilated intra or extrahepatic biliary ducts. There is a calculus in each kidney. The left kidney is otherwise normal. There are streaky densities extending out of the right kidney. There is marked hydroureter dilatation on the right. This is shown to be due to a 1 cm calculus at the ureterovesical junction. No renal masses are identified. No free air is noted in the abdomen or pelvis. No fluid collections or abscesses are seen. The aorta is unremarkable. There is no evidence of retroperitoneal masses or adenopathy. The osseous structures are unremarkable. Images of the pelvis reveal no evidence of masses, fluid collections, or adenopathy. IMPRESSION: Cholelithiasis Bilateral renal calculi Marked obstructive uropathy on the right secondary to a 1 cm calculus at the right ureterovesical junction Reported By: Shaggy Marcum MD 05/12/17 0929 HOSPITAL COURSE: 52 y/o man with h/o DM , nephrolithiasis , who presneted with abd pain admitted for sepsis secondary to UTI with RUVJ obstructing stone and hydronephrosis. Ct abdomen reported above reveled cholelithiasis Bilateral renal calculi Marked obstructive uropathy on the right secondary to a 1 cm calculus at the right ureterovesical junction. Urology was consulted. He was started on IVF and Levaquin based on urine cultures. He was taken to OR for cystoscopy and stent placement. He tolerated procedure well. He was given script for PO levaquin to complete a 10 day course. Flomax was continued and advised to follow up with urologist in one week. Diabetes was managed with NISS and glyberide. HTN medications were held initially secondary to LYNETTE. LYNETTE resolved with IVF and Lisinopril was restarted. He is stable at time of discharge with follow up appointment with urologist. Date of Admission:05/12/17 Date of Discharge: 05/14/17 Minutes to complete discharge: 45 Discharge Summary Reason For Visit: KIDNEY STONE,URINARY OBSTRUCTION,PYELONEPHRITIS Current Active Problems Calculus of ureter (Acute) DVT prophylaxis (Acute) Dehydration (Acute) Hydronephrosis with renal and ureteral calculus obstruction (Acute) Nausea vomiting and diarrhea (Acute) Pyelonephritis (Acute) Sepsis (Acute) Condition: Stable - Instructions Diet, Activity, Other Instructions: -Please follow up with Dr. Yang in one week. -Follow up with your primary doctor in one week. -You will be given a perscription for Levaquin which you will take once a day for 7 more days. -resume all home meds as directed. -Diabetic diet. -Increase activity as tolerated. -If you develop increased pain or fevers please return to ED immediately. Referrals: Ari Yang MD [Staff Physician] - Prashant Nj MD [Primary Care Provider] - Disposition: VNS/HOME HEALTH CARE - Home Medications Comprehensive Discharge Medication List: Ambulatory Orders Cholecalciferol (Vitamin D3) [Vitamin D3] 2,000 unit PO DAILY capsule 12/27/12 Tamsulosin HCl [Flomax -] 0.4 mg PO DAILY #7 capsule 01/09/16 Acetaminophen/Caffeine/Butalb [Fioricet -] 1 tablet PO TID PRN #30 tablet MDD 3 12/02/16 Levofloxacin [Levaquin -] 500 mg PO DAILY #7 tablet 05/14/17 Problem List - Problems (1) Sepsis (2) Pyelonephritis (3) Diabetes mellitus (4) HTN (hypertension) This patient is new to me today: No Emergency Visit: Yes ED Registration Date: 05/12/17 Care time: The patient presented to the Emergency Department on the above date and was hospitalized for further evaluation of their emergent condition. Critical Care patient: No - Discharge Referral Referred to [facility] Med P.C.: No
== END 2017-05-14 15:14 | disposition home health service (06) | DRG 872 ==
LOC: FER 04:36 → J6S 14:55
PROVIDERS: ADMIT Internal Medicine; ATTEND Internal Medicine
PROC: 0T768DZ Dilation of Right Ureter with Intraluminal Device, Via Natural or Artificial Opening Endoscopic (ICD-10-PCS; principal; 2017-05-13 17:00)
PROC: BT1D1ZZ Fluoroscopy of Right Kidney, Ureter and Bladder using Low Osmolar Contrast (ICD-10-PCS; 2017-05-13 17:00)
DX: A41.9 Sepsis, unspecified organism (principal); N13.2 Hydronephrosis with renal and ureteral calculous obstruction; N39.0 Urinary tract infection, site not specified; E11.9 Type 2 diabetes mellitus without complications; Z96.651 Presence of right artificial knee joint; I10 Essential (primary) hypertension; R11.2 Nausea with vomiting, unspecified
CPT/HCPCS: 36415; 71010-TC; 74000-TC; 74176-TC; 76000-TC; 80048; 80053; 81003; 81015; 82550; 83605; 84484; 85025; 87040; 87086; 87186; 94760; 99282-25; J1644

== ENCOUNTER 2017-07-06 06:33 | Day surgery (SDC) | payer BC ==
[2017-06-17 09:49] VITALS: BMI 32.8
[2017-07-06] MEDS ORDERED: IBUPROFEN 800 MG/8 ML IJ IVPB PRN (08:00)
[2017-07-06] MEDS ORDERED: DEXTROSE 5%-0.45% SALINE 1,000 ML IV SCH (08:00)
[2017-07-06] MEDS ORDERED: MIDAZOLAM HCL 2 MG/2 ML SINGLE DOSE VIAL ONE (08:01)
[2017-07-06] MEDS ORDERED: ACETAMINOPHEN 1000 MG/100 ML VIAL (NON FORMULARY) IVPB ONE (08:01)
[2017-07-06] MEDS ORDERED: LIDOCAINE HCL/PF 2% SDV 5ML VIAL ONE (08:01)
[2017-07-06] MEDS ORDERED: PROPOFOL 20 ML ONE ×2 (08:01)
--- NOTE | 2017-07-06 08:01 | HP ---
History & Physical Update - History History: No Change - Physical Physical: No Change - Assessment Assessment: No Change - Plan Plan: No Change
[2017-07-06] MEDS ORDERED: ceFAZolin SODIUM 1 GM VIAL IVPB ONE (08:18)
[2017-07-06] MEDS ORDERED: ceFAZolin SODIUM 1 GM VIAL ONE (08:23)
[2017-07-06] MEDS ORDERED: IOHEXOL 300 MG/ML INFUS..BTL IJ ONE (08:30)
[2017-07-06] MEDS ORDERED: oxyCODONE HCL 5 MG TABLET PO PRN (08:40)
[2017-07-06] MEDS ORDERED: ONDANSETRON 4 MG/2 ML VIAL IVPUSH PRN (08:40)
[2017-07-06] MEDS ORDERED: LACTATED RINGERS SOLUTION 1,000 ML IV SCH (08:45)
[2017-07-06] MEDS ORDERED: ACETAMINOPHEN INJECTION 100 ML IVPB ONE (09:50)
[2017-07-06] MEDS ORDERED: IBUPROFEN 800 MG/8 ML IJ IVPB ONE (09:59)
[2017-07-06 12:16] VITALS: BP 108/53; PULSE 80; TEMP 97.7
--- NOTE | 2017-08-13 11:55 | OP ---
DATE OF OPERATION: 07/06/2017 PREOPERATIVE DIAGNOSIS: Right ureteral stone. POSTOPERATIVE DIAGNOSIS: Right ureteral stone. PROCEDURE: Right ureteroscopy, laser lithotripsy, and a stent replacement. SURGEON: Miguel Ángel Coronado MD ESTIMATED BLOOD LOSS: Minimal. DRAINS: A 6 x 26 double-J ureteral stent. PREOPERATIVE INDICATIONS: The patient is a 52-year-old male with a large stone impacted in the distal right ureter. He had a stent placed for fear of sepsis at the time. He is doing well and now comes for laser lithotripsy. DESCRIPTION OF OPERATION: The patient is brought to the operating room. He is placed on the table in the supine position. He is given general anesthesia and intravenous antibiotics, and placed in the modified lithotomy position. The groin was prepped and draped sterilely. Cystoscopy was performed. The urethra was unremarkable. The prostate was slightly enlarged. The bladder itself was unremarkable. Emerging from the right ureteral orifice was a double-J stent. The stent was pulled through the ureteral meatus. A wire was passed up into the right kidney under fluoroscopic guidance. A rigid ureteroscope was passed into the distal ureter and the stone was visualized. Using the holmium laser fiber, the stone was broken up into small passable fragments, which were irrigated out. No other stones were seen along the course of the ureter. A 6 x 26 double-J ureteral stent was placed under fluoroscopic guidance in the right kidney and the right ureter. The bladder was emptied. The patient was woken up. Michael [id number]
== END 2017-07-06 12:15 | disposition home or self-care (01) ==
LOC: JASU-SURG 06:33
PROVIDERS: ATTEND Urology
PROC: 0TF68ZZ Fragmentation in Right Ureter, Via Natural or Artificial Opening Endoscopic (ICD-10-PCS; principal; 2017-07-06 08:00)
PROC: 0T768DZ Dilation of Right Ureter with Intraluminal Device, Via Natural or Artificial Opening Endoscopic (ICD-10-PCS; 2017-07-06 08:00)
DX: N20.1 Calculus of ureter (principal)
CPT/HCPCS: 76000-TC; 88300-TC; 94760

== ENCOUNTER 2018-01-21 02:06 | Observation (INO) | payer BC ==
--- NOTE | 2018-01-21 02:13 | PDOC ---
History of Present Illness - General Chief Complaint: Nausea Stated Complaint: I DON'T FEEL WELL Time Seen by Provider: 01/21/18 02:11 - History of Present Illness Initial Comments: 01/21/18 02:45 This 52-year-old man with a history of HTN/TM/HLD/BPH and mild mental retardation[independent; living alone] presents with several hour history of "not feeling well". Patient states that he was well until this previous evening when he began to have malaise/subjective fever/mild nonproductive cough/ mild sore throat. He denies nausea/vomiting/diarrhea earlier but began to be nauseous and vomited when he arrived in the emergency room. In late evening, he tested his fingerstick blood sugar (130); he had a small meal after this. He states he had brief left-sided chest pain during the evening lasting several minutes and resolving spontaneously. He denies shortness of breath. Patient states he has had mild left great toe pain in the last several days; no history of trauma He denies hematuria/dysuria/urinary frequency or urgency No recent travel; no recent known sick contacts. Patient had a flu shot this year and did not have any previous febrile illness recently. Patient is on several medications for his medical problems, including "pills" for his diabetes/high blood pressure/high cholesterol. Unfortunately, he does not know the names of the medications. However, he states he is been taking them as prescribed. He denies insulin use. PMD is [facility] Nj [facility] As above Also, right-sided hydronephrosis/obstructing UVJ stone/urosepsis April, Acute pericarditis November, Past History - Past Medical History Allergies/Adverse Reactions: Allergies Allergy/AdvReac Type Severity Reaction Status Date / Time pioglitazone HCl [From Actos] AdvReac Unknown Fluid Verified 07/06/17 07:29 retention& Accelerated HTN Home Medications: Ambulatory Orders Cholecalciferol (Vitamin D3) [Vitamin D3] 2,000 unit PO DAILY capsule 12/27/12 Diabetes: Yes HTN: Yes Hypercholesterolemia: Yes - Surgical History Orthopedic Surgery: Yes (RT TOTAL KNEE REPLACEMENT) - Immunization History Immunization Up to Date: No - Suicide/Smoking/Psychosocial Hx Smoking Status: No Smoking History: Never smoked Have you smoked in the past 12 months: No Number of Cigarettes Smoked Daily: 0 Hx Alcohol Use: No Drug/Substance Use Hx: No Substance Use Type: None Hx Substance Use Treatment: No Review of Systems - Review of Systems Able to Perform ROS?: Yes Comments:: 12 point review of systems is negative except for what is noted in the history of present illness *Physical Exam - Physical Exam Comments: GENERAL: Adult male, alert and oriented, answering questions appropriately; in no acute distress HEAD: Normal with no signs of trauma. EYES: PERRLA, EOMI, sclera anicteric, conjunctiva clear. ENT: Ears normal, nares patent, oropharynx clear without exudates. Dry mucous membranes. NECK: Normal range of motion, supple without lymphadenopathy, JVD, or masses. LUNGS: Breath sounds equal, clear to auscultation bilaterally. No wheezes, and no crackles. HEART:Regular rate and rhythm, normal S1 and S2 without murmur, rub or gallop. ABDOMEN:.normal bowel sounds No guarding,tenderness or rebound.No masses No distention. EXTREMITIES: Normal range of motion, no edema. No clubbing or cyanosis. No erythema, or tenderness. No evidence of nonhealing wounds/erythema/edema of either foot; no calf tenderness or edema NEUROLOGICAL: Cranial nerves II through XII grossly intact. Normal speech. No focal neurological deficits. MUSCULOSKELETAL: Back non-tender to palpation, no CVA tenderness SKIN: Warm, Dry, normal turgor, no rashes or lesions noted. 12-lead electrocardiogram is performed interpreted by me: Patient has mild sinus tachycardia at 104 bpm; there is left axis deviation (-31) which is new; there were no acute ST or T-wave abnormalities and intervals are normal ED Treatment Course - LABORATORY CBC & Chemistry Diagram: 01/21/18 02:12 01/21/18 02:12 Medical Decision Making - Medical Decision Making This 52-year-old man with a history of diabetes mellitus and hypertension as well as hyperlipidemia and mild mental retardation presents with several hour history of "not feeling well"; of note, he has mild nonproductive cough/mild sore throat with nausea and vomiting and developed once patient was present in the emergency room. History is somewhat compromised because of patient's MR: He has difficulty expressing specific complaints. Although symptoms could be secondary to viral syndrome, with his history of DM/urosepsis with ureteral stone, less obvious etiology must be ruled out. Although less likely because nausea/vomiting, influenza could also be present. Rapid Influenza testing not possible at this time, since reagent not available. 01/21/18 03:54 Patient continues to state that he "does not feel well" after 1 L normal saline and 4 mg of Zofran. He also had one further episode of vomiting . Emesis was partially digested food. 01/21/18 04:38 Patient given additional liter of fluid and 4 mg Zofran IV. Although no further vomiting episodes occur, patient states that he still not feeling well. Laboratory evaluation notable for white blood cell count of 12,100. Patient also has evidence of mild prerenal azotemia with BUN 14/creatinine 1.4, pulse higher than his baseline. Alkaline phosphatase is 128 . Although no history of biliary tract disease, gallbladder ultrasound or other imaging study warranted to fully rule this out Of note, bilirubin/transaminases/lipase are normal Urinalysis is essentially normal. Seems unlikely the patient has UTI or ureteral stone. Patient continues to state that he "does not feel well". In light of the patient's living alone with his mild retardation, admission warranted for IV fluids and further workup with his persistent vomiting 01/21/18 05:[address] Adorno of [facility] hospitalist service. Patient will be admitted in observation status for hydration and further workup. Meanwhile, patient had additional vomiting episode and Reglan 10 mg IV will be administered *DC/Admit/Observation/Transfer Diagnosis at time of Disposition: Dehydration Nausea & vomiting Qualifiers: Vomiting type: unspecified Vomiting Intractability: non-intractable Qualified Code(s): R11.2 - Nausea with vomiting, unspecified - Discharge Dispostion Condition at time of disposition: Stable Admit: Yes - Referrals - Patient Instructions - Post Discharge Activity
[2018-01-21] MEDS ORDERED: ONDANSETRON 4 MG/2 ML VIAL IVPUSH ONE ×2 (02:41→03:53)
[2018-01-21] MEDS ORDERED: SODIUM CHLORIDE 1,000 ML IV STA ×2 (02:41→03:55)
[2018-01-21] MEDS ORDERED: ONDANSETRON 4 MG/2 ML VIAL ONE ×2 (02:45→03:54)
[2018-01-21 03:22] LABS: BASO % 1.1 % (0-2.0); EOS % 4.5 % (0-4.5); HEMATOCRIT 46.5 % (35.4-49); LYMPH % 20.8 % (8-40); MCH 30.7 pg (25.7-33.7); MCHC 34.4 g/dl (32.0-35.9); MEAN CELL VOLUME 89.2 fl (80-96); MEAN PLT VOLUME 10.6 fl (7.5-11.1); MONO % 5.6 % (3.8-10.2); PLATELET COUNT 226 K/MM3 (134-434); RBC 5.21 M/mm3 (4.00-5.60); RDW 12.9 % (11.9-15.9); WHITE BLOOD COUNT 12.1 K/mm3 (4.0-10.0)
[2018-01-21 03:26] LABS: URINE APPEARANCE SLCLOUDY; URINE BILIRUBIN NEGATIVE (NEGATIVE); URINE BLOOD NEGATIVE (NEGATIVE); URINE COLOR DKYELLOW; URINE GLUCOSE (UA) NEGATIVE (NEGATIVE); URINE KETONE NEGATIVE (NEGATIVE); URINE LEUK ESTERASE NEGATIVE (NEGATIVE); URINE NITRITE NEGATIVE (NEGATIVE)
[2018-01-21 03:59] LABS: URINE PROTEIN 1+ (NEGATIVE)
[2018-01-21 04:18] LABS: CALCIUM OXALATE CRYSTALS RARE /hpf (NONE SEEN); EPI CELLS RARE /HPF (FEW); URINE MUCUS RARE
[2018-01-21 04:25] LABS: ALBUMIN 3.8 g/dl (3.4-5.0); ANION GAP 9 (8-16); BILIRUBIN,TOTAL 0.4 mg/dL (0.2-1.0); BLOOD UREA NITROGEN 14 mg/dL (7-18); CHLORIDE 100 mmol/L (98-107); CO2 30 mmol/L (21-32); CREATININE 1.4 mg/dL (0.7-1.3); GLUCOSE,RANDOM 195 mg/dL (74-106); SGPT/ALT 29 U/L (12-78); SODIUM 139 mmol/L (136-145); TOT PROT 7.4 g/dl (6.4-8.2)
[2018-01-21 04:28] LABS: ALK PHOS 128 U/L (45-117); POTASSIUM 3.9 mmol/L (3.5-5.1); SGOT/AST 25 U/L (15-37)
[2018-01-21] MEDS ORDERED: ACETAMINOPHEN 325 MG TABLET (FP) PO PRN (05:13)
[2018-01-21] MEDS ORDERED: ONDANSETRON 4 MG/2 ML VIAL IVPUSH PRN (05:13)
[2018-01-21] MEDS ORDERED: SODIUM CHLORIDE 1,000 ML IV SCH (05:15)
[2018-01-21] MEDS ORDERED: METOCLOPRAMIDE HCL INJECTION 10 MG/2 ML VIAL IVPB ONE (05:20)
[2018-01-21 06:55] VITALS: BMI 32.6
[2018-01-21] MEDS ORDERED: INSULIN (NOVOLOG) ASPART 100 UNITS/ML 10ML VIAL ONE (06:59)
[2018-01-21] MEDS: INSULIN SLIDING SCALE (NOVOLOG) 1 VIAL SQ SCH ×3 (07:02→16:54)
--- NOTE | 2018-01-21 07:12 | HP ---
CHIEF COMPLAINT: nausea PCP: Dr Nj HISTORY OF PRESENT ILLNESS: Patient is a 52 y/o male with a past medical history of mild MR, hypertension, and NIDDM. Patient reports nausea and vomiting for the past 24 hours and was unable to tolerate liquids. As a result, he sought evaluation in the emergency department. ER course was notable for: (1) wbc 12.1 (2) creatine 1.4 (3) ekg: sinus tachycardia, left axis deviation Recent Travel: none PAST MEDICAL HISTORY: see HPI PAST SURGICAL HISTORY: UVJ stent Social History: resides at home alone Smoking: none Alcohol:none Drugs: none Family History: non contributory to this admission Allergies pioglitazone HCl [From Actos] Adverse Reaction (Unknown, Verified 07/06/17 07:29 ) Fluid retention& Accelerated HTN HOME MEDICATIONS: Home Medications Medication Instructions Recorded Cholecalciferol (Vitamin D3) 2,000 unit PO DAILY capsule 12/27/12 [Vitamin D3] REVIEW OF SYSTEMS CONSTITUTIONAL: Absent: fever, chills, diaphoresis, generalized weakness, malaise, loss of appetite, weight change HEENT: Absent: rhinorrhea, nasal congestion, throat pain, throat swelling, difficulty swallowing, mouth swelling, ear pain, eye pain, visual changes CARDIOVASCULAR: Absent: chest pain, syncope, palpitations, irregular heart rate, lightheadedness , peripheral edema RESPIRATORY: Absent: cough, shortness of breath, dyspnea with exertion, orthopnea, wheezing, stridor, hemoptysis GASTROINTESTINAL: Present: nausea, vomiting, Absent: abdominal pain, abdominal distension, diarrhea, constipation, melena, hematochezia GENITOURINARY: Absent: dysuria, frequency, urgency, hesitancy, hematuria, flank pain, genital pain MUSCULOSKELETAL: Absent: myalgia, arthralgia, joint swelling, back pain, neck pain SKIN: Absent: rash, itching, pallor HEMATOLOGIC/IMMUNOLOGIC: Absent: easy bleeding, easy bruising, lymphadenopathy, frequent infections ENDOCRINE: Absent: unexplained weight gain, unexplained weight loss, heat intolerance, cold intolerance NEUROLOGIC: Absent: headache, focal weakness or paresthesias, dizziness, unsteady gait, seizure, mental status changes, bladder or bowel incontinence PSYCHIATRIC: Absent: anxiety, depression, suicidal or homicidal ideation, hallucinations. PHYSICAL EXAMINATION Vital Signs - 24 hr 01/21/18 01/21/18 01/21/18 02:09 04:43 06:25 Temperature 97.3 F L 98 F 98.2 F Pulse Rate 123 H 92 H Pulse Rate [ 94 H Radial] Respiratory 16 16 18 Rate Blood Pressure 141/62 114/71 Blood Pressure 126/85 [Arm] O2 Sat by Pulse 100 96 95 Oximetry (%) GENERAL: Awake, alert, and fully oriented, in no acute distress. HEAD: Normal with no signs of trauma. EYES: Pupils equal, round and reactive to light, extraocular movements intact, sclera anicteric, conjunctiva clear. No lid lag. EARS, NOSE, THROAT: Ears normal, nares patent, oropharynx clear without exudates. dry mucous membranes. NECK: Normal range of motion, supple without lymphadenopathy, JVD, or masses. LUNGS: Breath sounds equal, clear to auscultation bilaterally. No wheezes, and no crackles. No accessory muscle use. HEART: Regular rate and rhythm, normal S1 and S2 without murmur, rub or gallop. ABDOMEN: Soft, nontender, not distended, normoactive bowel sounds, no guarding, no rebound, no masses. No hepatomegaly or splenomegaly. MUSCULOSKELETAL: Normal range of motion at all joints. No bony deformities or tenderness. No CVA tenderness. UPPER EXTREMITIES: 2+ pulses, warm, well-perfused. No cyanosis. No clubbing. No peripheral edema. LOWER EXTREMITIES: 2+ pulses, warm, well-perfused. No calf tenderness. No peripheral edema. NEUROLOGICAL: Cranial nerves II-XII intact. Normal speech. Normal gait. PSYCHIATRIC: Cooperative. Good eye contact. Appropriate mood and affect. SKIN: Warm, dry, normal turgor, no rashes or lesions noted, normal capillary refill. Laboratory Results - last 24 hr 01/21/18 01/21/18 01/21/18 02:12 02:12 02:12 WBC 12.1 H D RBC 5.21 Hgb 16.0 D Hct 46.5 D MCV 89.2 MCH 30.7 MCHC 34.4 RDW 12.9 Plt Count 226 D MPV 10.6 Neutrophils % 68.0 Lymphocytes % 20.8 Monocytes % 5.6 Eosinophils % 4.5 Basophils % 1.1 Sodium 139 Potassium 3.9 Chloride 100 Carbon Dioxide 30 Anion Gap 9 BUN 14 D Creatinine 1.4 H D Creat Clearance w eGFR 53.01 POC Glucometer Random Glucose 195 H D Lactic Acid Calcium 9.0 Total Bilirubin 0.4 D AST 25 D ALT 29 Alkaline Phosphatase 128 H Creatine Kinase 66 Troponin I < 0.02 Total Protein 7.4 Albumin 3.8 Lipase 147 Urine Color Urine Appearance Urine pH Ur Specific [place] Urine Protein Urine Glucose (UA) Urine Ketones Urine Blood Urine Nitrite Urine Bilirubin Urine Urobilinogen Ur Leukocyte Esterase Urine WBC (Auto) Urine RBC (Auto) Ur Epithelial Cells Calcium Oxalate Crystal Urine Mucus 01/21/18 01/21/18 01/21/18 02:50 03:05 06:26 WBC RBC Hgb Hct MCV MCH MCHC RDW Plt Count MPV Neutrophils % Lymphocytes % Monocytes % Eosinophils % Basophils % Sodium Potassium Chloride Carbon Dioxide Anion Gap BUN Creatinine Creat Clearance w eGFR POC Glucometer 189 Random Glucose Lactic Acid 2.1 H Calcium Total Bilirubin AST ALT Alkaline Phosphatase Creatine Kinase Troponin I Total Protein Albumin Lipase Urine Color Dkyellow Urine Appearance Slcloudy Urine pH 7.0 Ur Specific [place] 1.021 Urine Protein 1+ H Urine Glucose (UA) Negative Urine Ketones Negative Urine Blood Negative Urine Nitrite Negative Urine Bilirubin Negative Urine Urobilinogen 2.0 Ur Leukocyte Esterase Negative Urine WBC (Auto) 3 Urine RBC (Auto) 3 Ur Epithelial Cells Rare Calcium Oxalate Crystal Rare Urine Mucus Rare ASSESSMENT/PLAN: f/e/n - ivf-->normal saline w/20meq kci @125ml/hr - replete lytes prn ppx - oob - protonix - scd dispo: pt requires observation admission Problem List - Problem (1) Dehydration Assessment/Plan: - patient appears dehydrated on exam, elevated lactic acid and creatine. start normal saline w/20meq kci @125ml/hr - start clear liquid diet - strict intake and output Code(s): E86.0 - DEHYDRATION (2) Nausea & vomiting Assessment/Plan: - lipase wnl, likely secondary to viral gastroenteritis, pt denies any nausea at this time, start clear liquid diet, no abdominal pain noted on exam - zofran prn Code(s): R11.2 - NAUSEA WITH VOMITING, UNSPECIFIED Qualifiers: Vomiting type: unspecified Vomiting Intractability: non-intractable Qualified Code(s): R11.2 - Nausea with vomiting, unspecified (3) Diabetes mellitus Assessment/Plan: - pending hemoglobin a1c, fingersticks achs with regular insulin sliding scale Code(s): E11.9 - TYPE 2 DIABETES MELLITUS WITHOUT COMPLICATIONS Qualifiers: Diabetes mellitus type: type 2 Diabetes mellitus complication status: without complication (4) HTN (hypertension) Assessment/Plan: - continue lisinopril, b/p at goal - b/p measurements q4h Code(s): I10 - ESSENTIAL (PRIMARY) HYPERTENSION Qualifiers: Hypertension type: essential hypertension Qualified Code(s): I10 - Essential (primary) hypertension Hospitalist Screening - Colonoscopy Questionnaire Colonoscopy Questionnaire: Colonoscopy Questionnaire
[2018-01-21 08:05] LABS: BASO % 0.3 % (0-2.0); EOS % 4.7 % (0-4.5); HEMATOCRIT 39.6 % (35.4-49); HEMOGLOBIN 13.6 GM/dl (11.7-16.9); LYMPH % 18.2 % (8-40); MCH 30.7 pg (25.7-33.7); MCHC 34.4 g/dl (32.0-35.9); MEAN CELL VOLUME 89.2 fl (80-96); MEAN PLT VOLUME 9.4 fl (7.5-11.1); MONO % 4.8 % (3.8-10.2); PLATELET COUNT 169 K/MM3 (134-434); RBC 4.44 M/mm3 (4.00-5.60); RDW 12.1 % (11.9-15.9); WHITE BLOOD COUNT 10.6 K/mm3 (4.0-10.8)
[2018-01-21 08:32] LABS: ANION GAP 7 (8-16); CALCIUM 8.8 mg/dl (8.4-10.2); CHLORIDE 103 mmol/L (98-107); CO2 27 mmol/L (22-28); GLUCOSE,RANDOM 203 mg/dl (74-106); POTASSIUM 3.7 mmol/L (3.5-5.1); SODIUM 137 mmol/L (136-145)
[2018-01-21 08:46] LABS: ALBUMIN 3.1 g/dl (3.5-5.0); ALK PHOS 84 U/L (32-92); BILIRUBIN,TOTAL 0.6 mg/dl (0.2-1.0); BLOOD UREA NITROGEN 11 mg/dl (7-18); CREATININE 1.2 mg/dl (0.6-1.3); SGOT/AST 27 U/L (10-42); SGPT/ALT 20 U/L (10-40)
[2018-01-21] MEDS: FLUTICASONE PROP 0.05% 16 GM NASAL SPRAY NS SCH ×2 (10:00→21:20)
[2018-01-21] MEDS: CHOLECALCIFEROL (VITAMIN D3) 1,000 UNIT TABLET (FP) PO SCH (10:02)
[2018-01-21] MEDS: LISINOPRIL 5 MG TABLET (FP) PO SCH (10:02)
[2018-01-21] MEDS: PANTOPRAZOLE 40 MG TABLET (FP) PO SCH (11:12)
[2018-01-21] MEDS: SODIUM CHLORIDE 0.9%/KCL 20 MEQ/1,000 ML INFUS.BAG IV SCH (11:13)
--- NOTE | 2018-01-21 15:08 | EKG ---
Test Reason : Blood Pressure : / mmHG Vent. Rate : 104 BPM Atrial Rate : 104 BPM P-R Int : 196 ms QRS Dur : 088 ms QT Int : 350 ms P-R-T Axes : 041 -31 053 degrees QTc Int : 460 ms SINUS TACHYCARDIA LEFT AXIS DEVIATION PULMONARY DISEASE PATTERN ABNORMAL ECG WHEN COMPARED WITH ECG OF 02-DEC-2016 01:49, QRS AXIS SHIFTED LEFT ST NO LONGER ELEVATED IN INFERIOR LEADS ST NO LONGER ELEVATED IN LATERAL LEADS NONSPECIFIC T WAVE ABNORMALITY NO LONGER EVIDENT IN INFERIOR LEADS NONSPECIFIC T WAVE ABNORMALITY, IMPROVED IN LATERAL LEADS Confirmed by YULIYA QUIROZ MD ([id number]) on 01/21/2018 3:07:42 PM Referred By: DR NETTLES Confirmed By:YULIYA QUIROZ MD
[2018-01-21] MEDS ORDERED: PT OWN MED DRAWER 7, Y5N ONE (21:05)
[2018-01-22 05:59] VITALS: BP 155/82; PULSE 93; TEMP 98.2
[2018-01-22] MEDS: INSULIN SLIDING SCALE (NOVOLOG) 1 VIAL SQ SCH ×2 (06:36→06:37)
[2018-01-22] MEDS ORDERED: PT OWN MED DRAWER 7, Y5N ONE (09:27)
[2018-01-22] MEDS: PANTOPRAZOLE 40 MG TABLET (FP) PO SCH (09:59)
[2018-01-22] MEDS: LISINOPRIL 5 MG TABLET (FP) PO SCH (09:59)
[2018-01-22] MEDS: FLUTICASONE PROP 0.05% 16 GM NASAL SPRAY NS SCH (09:59)
[2018-01-22] MEDS: CHOLECALCIFEROL (VITAMIN D3) 1,000 UNIT TABLET (FP) PO SCH (09:59)
[2018-01-22] MEDS: SODIUM CHLORIDE 0.9%/KCL 20 MEQ/1,000 ML INFUS.BAG IV SCH (10:00)
[2018-01-22] MEDS ORDERED: ENOXAPARIN NA (PORCINE) 60 MG/0.6 ML DISP.SYRIN SQ SCH (10:00)
--- NOTE | 2018-01-22 11:25 | DS ---
Physical Exam: SUBJECTIVE: Patient seen and examined, tolerating regular diet, denies any abdominal pain OBJECTIVE: Patient is a 52 y/o male with a past medical history of mild MR, hypertension, and NIDDM. Patient reports nausea and vomiting for the past 24 hours and was unable to tolerate liquids. As a result, he sought evaluation in the emergency department. ER course was notable for: (1) wbc 12.1 (2) creatine 1.4 (3) ekg: sinus tachycardia, left axis deviation Vital Signs Period Temp Pulse Resp BP Sys/Carias Pulse Ox Last 24 Hr 98.1 F-98.2 F 83-93 19-20 140-155/81-90 94-95 PHYSICAL EXAM GENERAL: The patient is awake, alert, and fully oriented, in no acute distress. HEAD: Normal with no signs of trauma. EYES: PERRL, extraocular movements intact, sclera anicteric, conjunctiva clear. ENT: Ears normal, nares patent, oropharynx clear without exudates, moist mucous membranes. NECK: Trachea midline, full range of motion, supple. LUNGS: Breath sounds equal, clear to auscultation bilaterally, no wheezes, no crackles, no accessory muscle use. HEART: Regular rate and rhythm, S1, S2 without murmur, rub or gallop. ABDOMEN: Soft, nontender, nondistended, normoactive bowel sounds, no guarding, no rebound, no hepatosplenomegaly, no masses. EXTREMITIES: 2+ pulses, warm, well-perfused, no edema. NEUROLOGICAL: Cranial nerves II through XII grossly intact. Normal speech, gait not observed. PSYCH: Normal mood, normal affect. SKIN: Warm, dry, normal turgor, no rashes or lesions noted. LABS Laboratory Results - last 24 hr 01/21/18 01/21/18 01/21/18 07:00 11:54 12:00 POC Glucometer 128 Hemoglobin A1c % 7.5 H D Lactic Acid 1.7 01/21/18 01/21/18 01/22/18 16:49 21:53 06:13 POC Glucometer 107 135 140 Hemoglobin A1c % Lactic Acid 01/22/18 07:50 POC Glucometer Hemoglobin A1c % Lactic Acid 0.9 HOSPITAL COURSE: Patient was admitted from the emergency department for dehydration and nausea and vomiting secondary to acute gastrenteritis, patient is tolerating regular diet, iv hydration given and lactic acidosis resolved. Patient was treated with PRN zofran with good results. Patient has a past medical history of diabetes melliutus, fingersticks achs with regular insulin coverage was continued throughout admission. Patient has a past medical history of hypertension and blood pressure remained at goal with home dose lisinopril. PLAN: - discharge home with bland diet then advance diet as tolerated - continue all medications as prescribed - return precautions reviewed, ie abdominal pain, nausea and vomiting must return to the emergency department Date of Admission:01/21/18 Date of Discharge: 01/22/18 Minutes to complete discharge: 45 Discharge Summary Reason For Visit: DEHYDRATION,NAUSEA/VOMITING Current Active Problems Dehydration (Acute) Nausea & vomiting (Acute) Condition: Improved - Instructions Disposition: HOME - Home Medications Comprehensive Discharge Medication List: Ambulatory Orders Cholecalciferol (Vitamin D3) [Vitamin D3] 2,000 unit PO DAILY capsule 12/27/12 Problem List - Problems (1) Dehydration Code(s): E86.0 - DEHYDRATION (2) Nausea & vomiting Code(s): R11.2 - NAUSEA WITH VOMITING, UNSPECIFIED Qualifiers: Vomiting type: unspecified Vomiting Intractability: non-intractable Qualified Code(s): R11.2 - Nausea with vomiting, unspecified (3) Diabetes mellitus Code(s): E11.9 - TYPE 2 DIABETES MELLITUS WITHOUT COMPLICATIONS Qualifiers: Diabetes mellitus type: type 2 Diabetes mellitus complication status: without complication (4) HTN (hypertension) Code(s): I10 - ESSENTIAL (PRIMARY) HYPERTENSION Qualifiers: Hypertension type: essential hypertension Qualified Code(s): I10 - Essential (primary) hypertension
== END 2018-01-22 12:30 | disposition home or self-care (01) ==
LOC: FER 02:06 → FM/S 05:18
PROVIDERS: ADMIT Internal Medicine; ATTEND Nurse Practitioner Family
PROC: 3E033GC Introduction of Other Therapeutic Substance into Peripheral Vein, Percutaneous Approach (ICD-10-PCS; principal; 2018-01-21)
PROC: 3E013GC Introduction of Other Therapeutic Substance into Subcutaneous Tissue, Percutaneous Approach (ICD-10-PCS; 2018-01-21)
PROC: 3E0337Z Introduction of Electrolytic and Water Balance Substance into Peripheral Vein, Percutaneous Approach (ICD-10-PCS; 2018-01-21)
DX: E86.0 Dehydration (principal); R11.2 Nausea with vomiting, unspecified; E11.9 Type 2 diabetes mellitus without complications; I10 Essential (primary) hypertension; E78.5 Hyperlipidemia, unspecified; N40.0 Benign prostatic hyperplasia without lower urinary tract symptoms; F70 Mild intellectual disabilities; Z96.651 Presence of right artificial knee joint
CPT/HCPCS: 36415; 80053; 81003; 81015; 82550; 82962; 83036; 83605; 83690; 84484; 85025; 93005; 99285-25; G0378

== ENCOUNTER 2020-10-22 10:27 | Emergency (ER) | payer BC ==
[2020-10-22 10:37] VITALS: BP 139/79; PULSE 104; TEMP 98.9; BMI 23.1
== END 2020-10-22 11:42 | disposition home or self-care (01) ==
LOC: FER 10:27
DX: J06.9 Acute upper respiratory infection, unspecified (principal); R05 Cough
CPT/HCPCS: 99283-25; C9803; U0003

== ENCOUNTER 2020-10-23 20:24 | Inpatient (IN) | payer BC, OTHER ==
[2020-10-23] MEDS ORDERED: SODIUM CHLORIDE 1,000 ML IV ONE ×2 (21:31→23:56)
[2020-10-23] MEDS ORDERED: ACETAMINOPHEN 500 MG TABLET (FP) PO ONE (21:39)
[2020-10-23 21:40] LABS: BASO % 0.3 % (0-2.0); HEMATOCRIT 44.7 % (35.4-49); HEMOGLOBIN 15.4 GM/dl (11.7-16.9); LYMPH % 7.4 % (8-40); MCH 31.3 pg (25.7-33.7); MCHC 34.4 g/dl (32.0-35.9); MEAN CELL VOLUME 90.9 fl (80-96); MEAN PLT VOLUME 9.3 fl (7.5-11.1); MONO % 5.7 % (3.8-10.2); NEUT % 86.6 % (42.8-82.8); PLATELET COUNT 184 K/MM3 (134-434); RBC 4.92 M/mm3 (4.00-5.60); WHITE BLOOD COUNT 7.6 K/mm3 (4.0-10.8)
[2020-10-23] MEDS ORDERED: ACETAMINOPHEN INJECTION 100 ML IVPB ONE (21:48)
[2020-10-23 21:50] LABS: ALBUMIN 3.3 g/dl (3.4-5.0); BILIRUBIN,TOTAL 0.9 mg/dl (0.2-1); CALCIUM 8.3 mg/dl (8.5-10); CREATININE 1.2 mg/dl (0.55-1.3); POTASSIUM 3.9 mmol/L (3.5-5.1); TOT PROT 6.6 g/dl (6.4-8.2)
[2020-10-24] MEDS ORDERED: CEFTRIAXONE 1 GM in DEXTROSE 5%-WATER - 50 ML IVPB ONE (00:23)
[2020-10-24] MEDS ORDERED: ALBUTEROL SO4 HFA INHALER IH PRN (00:28)
[2020-10-24] MEDS ORDERED: CHOLECALCIFEROL (VIT D3) 1,000 UNIT (25 MCG) TABLET PO ONE (00:28)
[2020-10-24] MEDS ORDERED: ACETAMINOPHEN 325 MG TABLET (FP) PO PRN (04:00)
[2020-10-24 05:28] VITALS: BMI 32.1
[2020-10-24] MEDS ORDERED: INSULIN SLIDING SCALE (NOVOLOG) 1 VIAL SQ SCH (07:00)
[2020-10-24 09:29] LABS: BASO % 0.4 % (0-2.0); EOS % 0.1 % (0-4.5); HEMOGLOBIN 13.5 GM/dL (11.7-16.9); LYMPH % 23.9 % (8-40); MCH 29.4 pg (25.7-33.7); MCHC 32.9 g/dl (32.0-35.9); MEAN CELL VOLUME 89.2 fl (80-96); MEAN PLT VOLUME 9.5 fl (7.5-11.1); MONO % 7.7 % (3.8-10.2); NEUT % 67.9 % (42.8-82.8); PLATELET COUNT 165 K/MM3 (134-434); RDW 12.9 % (11.9-15.9); WHITE BLOOD COUNT 5.3 K/mm3 (4.0-10.0)
[2020-10-24] MEDS: ENOXAPARIN NA (PORCINE) 40 MG/0.4 ML DISP.SYRIN SQ SCH (09:44)
[2020-10-24] MEDS: ASCORBIC ACID 500 MG TABLET (FP) PO SCH ×2 (09:45→21:42)
[2020-10-24] MEDS: ZINC SULFATE 220 MG CAPSULE (FP) PO SCH (09:45)
[2020-10-24 09:46] LABS: POTASSIUM 3.9 mmol/L (3.5-5.1)
[2020-10-24] MEDS: DEXAMETHASONE 4 MG TABLET (FP) PO SCH ×2 (09:47→21:42)
[2020-10-24] MEDS ORDERED: AZITHROMYCIN IVPB 500 MG/250 ML BAG IVPB SCH (10:00)
[2020-10-24] MEDS ORDERED: REMDESIVIR 200 MG in SODIUM CHLORIDE 210 ML IVPB ONE (10:00)
[2020-10-24 10:02] LABS: ALBUMIN 2.6 g/dl (3.4-5.0)
[2020-10-24 10:04] LABS: BLOOD UREA NITROGEN 14.8 mg/dL (7-18); CALCIUM 7.6 mg/dL (8.5-10.1); CREATININE 1.2 mg/dL (0.55-1.3); MAGNESIUM 1.6 mg/dL (1.8-2.4)
[2020-10-24 10:05] LABS: BILIRUBIN,TOTAL 0.6 mg/dL (0.2-1)
[2020-10-24 10:06] LABS: TOT PROT 5.9 g/dl (6.4-8.2)
[2020-10-24] MEDS ORDERED: CODEINE SO4 30 MG TABLET PO PRN (10:06)
[2020-10-24] MEDS ORDERED: DEXTROSE 5%-WATER - 50 ML IVPB ONE (11:27)
[2020-10-24] MEDS ORDERED: cefTRIAXone SODIUM 1 GM VIAL ONE (11:27)
[2020-10-24] MEDS: INSULIN SLIDING SCALE (NOVOLOG) 1 VIAL SQ SCH ×3 (11:33→21:46)
[2020-10-24] MEDS: AZITHROMYCIN IVPB 500 MG/250 ML BAG IVPB SCH (11:36)
[2020-10-24] MEDS: CEFTRIAXONE 1 GM in DEXTROSE 5%-WATER - 50 ML IVPB SCH (11:37)
[2020-10-24 12:00] LABS: INR 1.09 (0.83-1.09); PROTHROMBIN TIME (PATIENT) 13.4 SEC (9.7-13.0)
[2020-10-24 15:13] LABS: EPI CELLS 18 /uL (0-25.1); HYALINE CASTS 4 /uL (0-3.1); PH,URINE 5.5 (5.0-8.0); URINE APPEARANCE CLEAR; URINE BACTERIA 30 /uL (0-1359); URINE BILIRUBIN NEGATIVE (NEGATIVE); URINE COLOR YELLOW; URINE GLUCOSE (UA) 3+ (NEGATIVE); URINE KETONE TRACE (NEGATIVE); URINE LEUK ESTERASE TRACE (NEGATIVE); URINE NITRITE NEGATIVE (NEGATIVE); URINE PROTEIN 1+ (NEGATIVE); URINE UROBILINOGEN 0.2 mg/dL (0.2-1.0); URINE WBC 100 /uL (0-25.8)
[2020-10-24 15:46] LABS: URINE RBC 270.2 /uL (0-23.9)
[2020-10-24 15:47] LABS: YEAST NONE SEEN (NEGATIVE)
[2020-10-24] MEDS ORDERED: INSULIN (LEVEMIR) 100 UNITS/ML UNITS SQ SCH (22:00)
[2020-10-25] MEDS: INSULIN SLIDING SCALE (NOVOLOG) 1 VIAL SQ SCH ×4 (06:12→21:44)
[2020-10-25] MEDS ORDERED: cefTRIAXone SODIUM 1 GM VIAL ONE (07:59)
[2020-10-25] MEDS ORDERED: DEXTROSE 5%-WATER - 50 ML IVPB ONE (08:00)
[2020-10-25 09:09] LABS: POTASSIUM 4.1 mmol/L (3.5-5.1)
[2020-10-25] MEDS: AZITHROMYCIN IVPB 500 MG in DEXTROSE 5%-WATER - 250 ML IVPB ONE ×2 (09:14→10:32)
[2020-10-25] MEDS: ENOXAPARIN NA (PORCINE) 40 MG/0.4 ML DISP.SYRIN SQ SCH (09:14)
[2020-10-25] MEDS: ASCORBIC ACID 500 MG TABLET (FP) PO SCH ×2 (09:14→21:04)
[2020-10-25] MEDS: DEXAMETHASONE 4 MG TABLET (FP) PO SCH ×2 (09:14→21:03)
[2020-10-25 09:16] LABS: CALCIUM 8.5 mg/dL (8.5-10.1)
[2020-10-25 09:17] LABS: ALBUMIN 2.8 g/dl (3.4-5.0)
[2020-10-25 09:20] LABS: CREATININE 1.1 mg/dL (0.55-1.3)
[2020-10-25 09:21] LABS: BILIRUBIN,TOTAL 0.8 mg/dL (0.2-1); TOT PROT 6.5 g/dl (6.4-8.2)
[2020-10-25 09:25] LABS: BASO % 0.2 % (0-2.0); HEMOGLOBIN 14.7 GM/dL (11.7-16.9); LYMPH % 20.8 % (8-40); MCHC 33.4 g/dl (32.0-35.9); MEAN CELL VOLUME 89.9 fl (80-96); MEAN PLT VOLUME 9.5 fl (7.5-11.1); MONO % 6.9 % (3.8-10.2); NEUT % 72.1 % (42.8-82.8); PLATELET COUNT 175 K/MM3 (134-434); RDW 12.9 % (11.9-15.9); WHITE BLOOD COUNT 4.6 K/mm3 (4.0-10.0)
[2020-10-25] MEDS ORDERED: CEFTRIAXONE 1 GM in DEXTROSE 5%-WATER - 50 ML IVPB SCH (10:00)
[2020-10-25] MEDS ORDERED: AZITHROMYCIN IVPB 500 MG/250 ML BAG IVPB SCH (10:00)
[2020-10-25] MEDS: AZITHROMYCIN IVPB 500 MG/250 ML BAG IVPB SCH (10:36)
[2020-10-25] MEDS: CEFTRIAXONE 1 GM in DEXTROSE 5%-WATER - 50 ML IVPB SCH (10:46)
[2020-10-25] MEDS: ZINC SULFATE 220 MG CAPSULE (FP) PO SCH (11:44)
[2020-10-25] MEDS: REMDESIVIR 100 MG in SODIUM CHLORIDE 230 ML IVPB SCH (11:45)
[2020-10-25] MEDS: guaiFENesin/D-METHORPHAN HB 10 ML UNIT-DOSE CUPS PO PRN (17:18)
[2020-10-25] MEDS ORDERED: INSULIN (LEVEMIR) 100 UNITS/ML UNITS SQ SCH (17:38)
[2020-10-26] MEDS: INSULIN SLIDING SCALE (NOVOLOG) 1 VIAL SQ SCH ×4 (06:35→21:26)
[2020-10-26] MEDS ORDERED: INSULIN (NOVOLOG) ASPART 100 UNITS/ML 10ML VIAL ONE (06:41)
[2020-10-26] MEDS ORDERED: cefTRIAXone SODIUM 1 GM VIAL ONE (08:18)
[2020-10-26] MEDS ORDERED: DEXTROSE 5%-WATER - 50 ML IVPB ONE (08:19)
[2020-10-26] MEDS: DEXAMETHASONE 4 MG TABLET (FP) PO SCH ×2 (09:27→21:23)
[2020-10-26] MEDS: ENOXAPARIN NA (PORCINE) 40 MG/0.4 ML DISP.SYRIN SQ SCH (09:34)
[2020-10-26] MEDS: ZINC SULFATE 220 MG CAPSULE (FP) PO SCH (09:34)
[2020-10-26] MEDS: LISINOPRIL 5 MG TABLET PO SCH (09:35)
[2020-10-26] MEDS: ASCORBIC ACID 500 MG TABLET (FP) PO SCH ×2 (09:35→21:21)
[2020-10-26] MEDS: guaiFENesin/D-METHORPHAN HB 10 ML UNIT-DOSE CUPS PO PRN (09:36)
[2020-10-26] MEDS: AZITHROMYCIN IVPB 500 MG/250 ML BAG IVPB SCH (09:38)
[2020-10-26 09:43] LABS: BASO % 0.1 % (0-2.0); HEMATOCRIT 45.3 % (35.4-49); LYMPH % 12.8 % (8-40); MCH 29.4 pg (25.7-33.7); MCHC 33.1 g/dl (32.0-35.9); MEAN CELL VOLUME 88.8 fl (80-96); MEAN PLT VOLUME 9.9 fl (7.5-11.1); MONO % 6.6 % (3.8-10.2); NEUT % 80.5 % (42.8-82.8); PLATELET COUNT 223 K/MM3 (134-434); RDW 12.8 % (11.9-15.9); WHITE BLOOD COUNT 7.1 K/mm3 (4.0-10.0)
[2020-10-26 10:04] LABS: POTASSIUM 4.2 mmol/L (3.5-5.1)
[2020-10-26 10:12] LABS: ALBUMIN 2.7 g/dl (3.4-5.0); BLOOD UREA NITROGEN 24.2 mg/dL (7-18); MAGNESIUM 1.8 mg/dL (1.8-2.4)
[2020-10-26 10:15] LABS: BILIRUBIN,TOTAL 0.4 mg/dL (0.2-1); CREATININE 1.1 mg/dL (0.55-1.3)
[2020-10-26 10:17] LABS: TOT PROT 6.3 g/dl (6.4-8.2)
[2020-10-26 10:18] LABS: CALCIUM 8.4 mg/dL (8.5-10.1)
[2020-10-26] MEDS: Insulin (LOG) Aspart 100 UNITS/ML VIAL SQ ONE ×2 (11:56→12:00)
[2020-10-26] MEDS: REMDESIVIR 100 MG in SODIUM CHLORIDE 230 ML IVPB SCH (12:03)
[2020-10-26] MEDS: CEFTRIAXONE 1 GM in DEXTROSE 5%-WATER - 50 ML IVPB SCH (13:14)
[2020-10-26] MEDS: INSULIN (LEVEMIR) 100 UNITS/ML UNITS SQ SCH (21:20)
[2020-10-27] MEDS: INSULIN SLIDING SCALE (NOVOLOG) 1 VIAL SQ SCH ×4 (06:49→23:02)
[2020-10-27] MEDS ORDERED: DEXTROSE 5%-WATER - 50 ML IVPB ONE (10:55)
[2020-10-27] MEDS ORDERED: cefTRIAXone SODIUM 1 GM VIAL ONE (10:55)
[2020-10-27] MEDS: ASCORBIC ACID 500 MG TABLET (FP) PO SCH ×2 (10:57→23:02)
[2020-10-27] MEDS: DEXAMETHASONE 4 MG TABLET (FP) PO SCH ×2 (10:57→22:59)
[2020-10-27] MEDS: ZINC SULFATE 220 MG CAPSULE (FP) PO SCH (10:57)
[2020-10-27] MEDS: ENOXAPARIN NA (PORCINE) 40 MG/0.4 ML DISP.SYRIN SQ SCH (10:58)
[2020-10-27] MEDS: CEFTRIAXONE 1 GM in DEXTROSE 5%-WATER - 50 ML IVPB SCH (10:58)
[2020-10-27] MEDS: LISINOPRIL 5 MG TABLET PO SCH (10:58)
[2020-10-27] MEDS: AZITHROMYCIN IVPB 500 MG/250 ML BAG IVPB SCH (11:07)
[2020-10-27] MEDS: REMDESIVIR 100 MG in SODIUM CHLORIDE 230 ML IVPB SCH (11:34)
[2020-10-27 12:40] LABS: BASO % 0.1 % (0-2.0); HEMATOCRIT 44.1 % (35.4-49); HEMOGLOBIN 14.7 GM/dL (11.7-16.9); LYMPH % 13.3 % (8-40); MCHC 33.3 g/dl (32.0-35.9); MEAN PLT VOLUME 10.1 fl (7.5-11.1); MONO % 9.4 % (3.8-10.2); NEUT % 77.2 % (42.8-82.8); PLATELET COUNT 224 K/MM3 (134-434); RDW 12.7 % (11.9-15.9); WHITE BLOOD COUNT 6.3 K/mm3 (4.0-10.0)
[2020-10-27 12:59] LABS: POTASSIUM 4.1 mmol/L (3.5-5.1)
[2020-10-27 13:06] LABS: ALBUMIN 2.6 g/dl (3.4-5.0); CALCIUM 8.4 mg/dL (8.5-10.1)
[2020-10-27 13:07] LABS: BLOOD UREA NITROGEN 28.7 mg/dL (7-18); MAGNESIUM 1.9 mg/dL (1.8-2.4)
[2020-10-27 13:10] LABS: CREATININE 1.1 mg/dL (0.55-1.3)
[2020-10-27 13:11] LABS: BILIRUBIN,TOTAL 0.5 mg/dL (0.2-1); TOT PROT 5.9 g/dl (6.4-8.2)
[2020-10-27] MEDS: INSULIN (LEVEMIR) 100 UNITS/ML UNITS SQ SCH (23:03)
[2020-10-28] MEDS: INSULIN SLIDING SCALE (NOVOLOG) 1 VIAL SQ SCH ×4 (06:29→22:15)
[2020-10-28 08:39] LABS: BASO % 0.1 % (0-2.0); HEMATOCRIT 43.3 % (35.4-49); HEMOGLOBIN 14.5 GM/dL (11.7-16.9); LYMPH % 16.9 % (8-40); MCH 29.7 pg (25.7-33.7); MCHC 33.5 g/dl (32.0-35.9); MEAN CELL VOLUME 88.7 fl (80-96); MEAN PLT VOLUME 9.4 fl (7.5-11.1); MONO % 5.9 % (3.8-10.2); NEUT % 77.1 % (42.8-82.8); PLATELET COUNT 221 K/MM3 (134-434); RBC 4.87 M/mm3 (4.00-5.60); RDW 12.7 % (11.9-15.9); WHITE BLOOD COUNT 5.9 K/mm3 (4.0-10.0)
[2020-10-28 08:41] LABS: POTASSIUM 4.1 mmol/L (3.5-5.1)
[2020-10-28 08:45] LABS: CALCIUM 8.5 mg/dL (8.5-10.1)
[2020-10-28 08:46] LABS: ALBUMIN 2.6 g/dl (3.4-5.0); BLOOD UREA NITROGEN 25.3 mg/dL (7-18); MAGNESIUM 1.9 mg/dL (1.8-2.4)
[2020-10-28 08:50] LABS: BILIRUBIN,TOTAL 0.5 mg/dL (0.2-1)
[2020-10-28] MEDS ORDERED: cefTRIAXone SODIUM 1 GM VIAL ONE (09:45)
[2020-10-28] MEDS ORDERED: DEXTROSE 5%-WATER - 50 ML IVPB ONE (09:45)
[2020-10-28] MEDS: ZINC SULFATE 220 MG CAPSULE (FP) PO SCH (10:07)
[2020-10-28] MEDS: LISINOPRIL 5 MG TABLET PO SCH (10:07)
[2020-10-28] MEDS: ENOXAPARIN NA (PORCINE) 40 MG/0.4 ML DISP.SYRIN SQ SCH (10:07)
[2020-10-28] MEDS: guaiFENesin/D-METHORPHAN HB 10 ML UNIT-DOSE CUPS PO PRN (10:07)
[2020-10-28] MEDS: DEXAMETHASONE 4 MG TABLET (FP) PO SCH ×2 (10:07→22:09)
[2020-10-28] MEDS: ASCORBIC ACID 500 MG TABLET (FP) PO SCH ×2 (10:07→22:09)
[2020-10-28] MEDS: CEFTRIAXONE 1 GM in DEXTROSE 5%-WATER - 50 ML IVPB SCH (10:09)
[2020-10-28] MEDS: REMDESIVIR 100 MG in SODIUM CHLORIDE 230 ML IVPB SCH (10:51)
[2020-10-28] MEDS ORDERED: INSULIN (LEVEMIR) 100 UNITS/ML UNITS SQ SCH (13:03)
[2020-10-29] MEDS: INSULIN SLIDING SCALE (NOVOLOG) 1 VIAL SQ SCH ×5 (06:34→22:23)
[2020-10-29 09:06] LABS: BASO % 0.2 % (0-2.0); HEMATOCRIT 45.1 % (35.4-49); HEMOGLOBIN 15.4 GM/dL (11.7-16.9); LYMPH % 14.7 % (8-40); MCH 30.2 pg (25.7-33.7); MCHC 34.2 g/dl (32.0-35.9); MEAN CELL VOLUME 88.5 fl (80-96); MEAN PLT VOLUME 9.9 fl (7.5-11.1); MONO % 5.2 % (3.8-10.2); NEUT % 79.9 % (42.8-82.8); PLATELET COUNT 281 K/MM3 (134-434); RBC 5.09 M/mm3 (4.00-5.60); RDW 12.7 % (11.9-15.9); WHITE BLOOD COUNT 7.8 K/mm3 (4.0-10.0)
[2020-10-29] MEDS ORDERED: PT OWN MED DRAWER 7, Y5N ONE (09:07)
[2020-10-29] MEDS: LISINOPRIL 5 MG TABLET PO SCH (09:16)
[2020-10-29] MEDS: ASCORBIC ACID 500 MG TABLET (FP) PO SCH ×2 (09:16→22:24)
[2020-10-29] MEDS: ENOXAPARIN NA (PORCINE) 40 MG/0.4 ML DISP.SYRIN SQ SCH (09:16)
[2020-10-29] MEDS: ZINC SULFATE 220 MG CAPSULE (FP) PO SCH (09:16)
[2020-10-29] MEDS: DEXAMETHASONE 4 MG TABLET (FP) PO SCH (09:16)
[2020-10-29 09:27] LABS: POTASSIUM 4.3 mmol/L (3.5-5.1)
[2020-10-29 09:33] LABS: ALBUMIN 2.9 g/dl (3.4-5.0); BLOOD UREA NITROGEN 25.7 mg/dL (7-18); CALCIUM 8.6 mg/dL (8.5-10.1); MAGNESIUM 1.9 mg/dL (1.8-2.4)
[2020-10-29 09:37] LABS: BILIRUBIN,TOTAL 0.8 mg/dL (0.2-1); TOT PROT 6.4 g/dl (6.4-8.2)
[2020-10-29 12:14] LABS: ANISOCYTOSIS 0; MACROCYTOSIS 0; PLATELET ESTIMATE NORMAL
[2020-10-29] MEDS ORDERED: INSULIN (LEVEMIR) 100 UNITS/ML UNITS SQ SCH (22:00)
[2020-10-30] MEDS: INSULIN SLIDING SCALE (NOVOLOG) 1 VIAL SQ SCH ×2 (06:28→12:40)
[2020-10-30 09:15] LABS: BASO % 0.1 % (0-2.0); EOS % 0.2 % (0-4.5); HEMATOCRIT 45.1 % (35.4-49); HEMOGLOBIN 15.4 GM/dL (11.7-16.9); LYMPH % 16.8 % (8-40); MCH 30.1 pg (25.7-33.7); MCHC 34.1 g/dl (32.0-35.9); MEAN CELL VOLUME 88.3 fl (80-96); MEAN PLT VOLUME 9.3 fl (7.5-11.1); MONO % 7.1 % (3.8-10.2); NEUT % 75.8 % (42.8-82.8); PLATELET COUNT 281 K/MM3 (134-434); RBC 5.11 M/mm3 (4.00-5.60); RDW 12.5 % (11.9-15.9); WHITE BLOOD COUNT 11.5 K/mm3 (4.0-10.0)
[2020-10-30 09:29] LABS: POTASSIUM 3.6 mmol/L (3.5-5.1)
[2020-10-30 09:31] LABS: ALBUMIN 2.8 g/dl (3.4-5.0); CALCIUM 8.7 mg/dL (8.5-10.1)
[2020-10-30 09:32] LABS: BLOOD UREA NITROGEN 24.5 mg/dL (7-18); MAGNESIUM 2.1 mg/dL (1.8-2.4)
[2020-10-30 09:36] LABS: BILIRUBIN,TOTAL 0.6 mg/dL (0.2-1); TOT PROT 6.1 g/dl (6.4-8.2)
[2020-10-30] MEDS: ZINC SULFATE 220 MG CAPSULE (FP) PO SCH (09:38)
[2020-10-30] MEDS: ASCORBIC ACID 500 MG TABLET (FP) PO SCH (09:38)
[2020-10-30] MEDS: ENOXAPARIN NA (PORCINE) 40 MG/0.4 ML DISP.SYRIN SQ SCH (09:39)
[2020-10-30] MEDS: LISINOPRIL 5 MG TABLET PO SCH (09:57)
[2020-10-30] MEDS ORDERED: DEXAMETHASONE 4 MG TABLET (FP) PO SCH (10:00)
[2020-10-30 11:54] LABS: ANISOCYTOSIS 1+; PLATELET ESTIMATE NORMAL
[2020-10-30 15:36] VITALS: BP 101/52; PULSE 76; TEMP 97.8
== END 2020-10-30 15:52 | disposition home health service (06) | DRG 177 ==
LOC: FER 20:24 → J5S 10-24 04:25
PROVIDERS: ADMIT Family Medicine; ATTEND Nurse Practitioner Acute Care
PROC: XW033E5 Introduction of Remdesivir Anti-infective into Peripheral Vein, Percutaneous Approach, New Technology Group 5 (ICD-10-PCS; principal; 2020-10-24)
PROC: XW13325 Transfusion of Convalescent Plasma (Nonautologous) into Peripheral Vein, Percutaneous Approach, New Technology Group 5 (ICD-10-PCS; 2020-10-24)
DX: U07.1 COVID-19 (principal); J96.01 Acute respiratory failure with hypoxia; J12.89 Other viral pneumonia; E87.2 Acidosis; E11.65 Type 2 diabetes mellitus with hyperglycemia; I95.1 Orthostatic hypotension; I10 Essential (primary) hypertension; E86.0 Dehydration; Z79.84 Long term (current) use of oral hypoglycemic drugs
CPT/HCPCS: 36415; 36430; 70450-TC; 71045-TC-FY; 80053; 81003; 82550; 82728; 82962; 83605; 83615; 83735; 84484; 85025; 85379; 85610; 86140; 86850; 86900; 86901; 87040; 87899; 93005; 94010; 94761; 97116-GP; 97161-GP; 99285-25; C9399; C9803; P9017; U0003

== ENCOUNTER 2024-05-27 19:23 | Inpatient (IN) | payer OTHER, BC ==
[2024-05-27] MEDS ORDERED: ACETAMINOPHEN INJECTION 100 ML IVPB ONE (20:00)
[2024-05-27] MEDS: SODIUM CHLORIDE 1,000 ML IV ONE (20:15)
[2024-05-27] MEDS: ACETAMINOPHEN 1000 MG/100 ML BAG IVPB ONE (20:15)
[2024-05-27 20:56] LABS: ALBUMIN 3.6 g/dl (3.4-5.0); CALCIUM 9.9 mg/dl (8.5-10.1); CREATININE 1.3 mg/dl (0.6-1.3); MAGNESIUM 1.3 mg/dL (1.8-2.4); PHOSPHOROUS 2.8 (2.5-4.9); POTASSIUM 3.9 mmol/L (3.5-5.1); TOT PROT 6.3 g/dl (6.4-8.2)
[2024-05-27 21:09] LABS: HEMATOCRIT 37.5 % (35.4-49); HEMOGLOBIN 12.3 G/dL (11.7-16.9); MCH 28.6 pg (25.7-33.7); MCHC 32.7 g/dl (32.0-35.9); MEAN CELL VOLUME 87.3 fl (80-96); MEAN PLT VOLUME 10.2 fl (7.5-11.1); PLATELET COUNT 228.5 10^3/uL (134-434); RBC 4.29 10^6/uL (4.00-5.60); RDW 13.5 % (11.9-15.9); WHITE BLOOD COUNT 14.9 10^3/uL (4.0-10.8)
[2024-05-27 23:01] LABS: EPITHELIAL CELLS 0-5 /hpf
[2024-05-27 23:27] VITALS: BMI 28.0
[2024-05-27] MEDS: PIPERACILLIN/TAZOB 4.5 GM 4.5 GM in DEXTROSE 5%-WATER 100 ML IVPB ONE (23:51)
[2024-05-27] MEDS: VANCOMYCIN 1,000 MG in DEXTROSE 5%-WATER - 250 ML IVPB ONE (23:54)
[2024-05-28 09:25] LABS: CALCIUM 9.7 mg/dl (8.5-10.1); CREATININE 1.3 mg/dl (0.6-1.3); POTASSIUM 3.9 mmol/L (3.5-5.1)
[2024-05-28] MEDS: PIPERACILLIN/TAZOB 3.375 GM 3.375 GM in DEXTROSE 5%-WATER - 50 ML IVPB SCH (09:57)
[2024-05-28] MEDS ORDERED: glipiZIDE-XL 10 MG TAB.ER.24 (FP) PO SCH (10:00)
[2024-05-28 10:17] LABS: ERYTHROCYTE SEDIMENTATION RATE 51 mm/hr (0-20)
[2024-05-28] MEDS: TAMSULOSIN HCL 0.4 MG CAP PO SCH (10:20)
[2024-05-28 11:29] LABS: BASO % 0.4 % (0-2.0); EOS % 3.6 % (0-4.5); HEMATOCRIT 37.9 % (35.4-49); HEMOGLOBIN 12.6 GM/dL (11.7-16.9); LYMPH % 13.4 % (8-40); MCH 28.5 pg (25.7-33.7); MCHC 33.2 g/dl (32.0-35.9); MEAN PLT VOLUME 9.7 fl (7.5-11.1); MONO % 8.6 % (3.8-10.2); PLATELET COUNT 214 10^3/uL (134-434); RBC 4.41 M/mm3 (4.00-5.60); RDW 13.5 % (11.9-15.9)
[2024-05-28] MEDS: VANCOMYCIN PREMIX 1.5 GM 1,500 MG/300 ML BAG IVPB SCH (12:18)
[2024-05-28] MEDS: INSULIN ASPART SLIDING SCALE (NOVOLOG) 1 VIAL SQ SCH (13:13)
[2024-05-28] MEDS ORDERED: metFORMIN HCL 500 MG TABLET (FP) PO SCH (16:30)
[2024-05-29 08:04] LABS: HEMATOCRIT 40.7 % (35.4-49); MCH 28.3 pg (25.7-33.7); MEAN CELL VOLUME 88.2 fl (80-96); MEAN PLT VOLUME 10.2 fl (7.5-11.1); PLATELET COUNT 227.1 10^3/uL (134-434); RBC 4.61 10^6/uL (4.00-5.60)
[2024-05-29 08:43] LABS: ALBUMIN 3.5 g/dl (3.4-5.0); BILIRUBIN,TOTAL 0.7 mg/dl (0.2-1); CALCIUM 9.4 mg/dl (8.5-10.1); CREATININE 1.2 mg/dl (0.6-1.3); MAGNESIUM 1.5 mg/dL (1.8-2.4); PHOSPHOROUS 3.7 (2.5-4.9); TOT PROT 6.3 g/dl (6.4-8.2)
[2024-05-29] MEDS: ENOXAPARIN NA (PORCINE) 40 MG/0.4 ML DISP.SYRIN SQ SCH (09:25)
[2024-05-29] MEDS: PIPERACILLIN/TAZOB 3.375 GM 3.375 GM in DEXTROSE 5%-WATER - 50 ML IVPB SCH (09:26)
[2024-05-29] MEDS: MAGNESIUM OXIDE 400 MG TABLET (FP) PO ONE (10:24)
[2024-05-29] MEDS: VANCOMYCIN HCL 1,500 MG in DEXTROSE 5%-WATER - 250 ML IVPB SCH (13:12)
[2024-05-29] MEDS: VANCOMYCIN/WATER 1250 MG 1,250 MG/250 ML BAG IVPB SCH (15:18)
[2024-05-30 08:49] LABS: HEMATOCRIT 39.1 % (35.4-49); HEMOGLOBIN 12.4 G/dL (11.7-16.9); MCH 27.8 pg (25.7-33.7); MCHC 31.6 g/dl (32.0-35.9); MEAN CELL VOLUME 88.1 fl (80-96); MEAN PLT VOLUME 9.9 fl (7.5-11.1); PLATELET COUNT 262.4 10^3/uL (134-434); RBC 4.44 10^6/uL (4.00-5.60); RDW 14.1 % (11.9-15.9); WHITE BLOOD COUNT 9.7 10^3/uL (4.0-10.8)
[2024-05-30 09:08] LABS: CALCIUM 9.3 mg/dl (8.5-10.1); MAGNESIUM 1.6 mg/dL (1.8-2.4); PHOSPHOROUS 4.1 (2.5-4.9)
[2024-05-30 10:20] LABS: CREATININE 1.3 mg/dl (0.6-1.3)
[2024-05-30] MEDS: ARTIFICIAL TEARS OPHTHALMIC DROPS OU PRN (20:42)
[2024-05-30] MEDS: CEFTRIAXONE 1 GM in DEXTROSE 5%-WATER - 50 ML IVPB ONE (22:21)
[2024-05-31 02:42] LABS: HEMOGLOBIN 12.5 GM/dL (11.7-16.9); MCH 28.9 pg (25.7-33.7); MCHC 33.7 g/dl (32.0-35.9); MEAN CELL VOLUME 85.7 fl (80-96); MEAN PLT VOLUME 9.5 fl (7.5-11.1); PLATELET COUNT 263 10^3/uL (134-434); RBC 4.32 M/mm3 (4.00-5.60); RDW 13.2 % (11.9-15.9); WHITE BLOOD COUNT 8.2 K/mm3 (4.0-10.0)
[2024-05-31 02:59] LABS: POTASSIUM 3.8 mmol/L (3.5-5.1)
[2024-05-31 03:00] LABS: CALCIUM 8.9 mg/dL (8.5-10.1)
[2024-05-31 03:02] LABS: BLOOD UREA NITROGEN 13.2 mg/dL (7-18)
[2024-05-31 03:05] LABS: CREATININE 1.2 mg/dL (0.55-1.3)
[2024-05-31] MEDS: CEFTRIAXONE 2 GM in DEXTROSE 5%-WATER 100 ML IVPB SCH (09:31)
[2024-06-01] MEDS ORDERED: LIDOCAINE HCL 2% (20ML MULTI-DOSE VIAL) ONE (11:07)
[2024-06-01] MEDS ORDERED: BUPIVACAINE HCL/PF 0.5% (5MG/ML) 10 ML VIAL ONE (11:08)
[2024-06-01] MEDS ORDERED: MIDAZOLAM HCL 2 MG/2 ML SINGLE DOSE VIAL ONE (11:35)
[2024-06-01] MEDS ORDERED: ONDANSETRON 4 MG/2 ML VIAL ONE (11:52)
[2024-06-01] MEDS: LACTATED RINGERS SOLUTION 1,000 ML IV SCH (14:13)
[2024-06-01] MEDS: INSULIN ASPART SLIDING SCALE (NOVOLOG) 1 VIAL SQ SCH (17:55)
[2024-06-02 08:11] LABS: ALBUMIN 3.5 g/dl (3.4-5.0); BILIRUBIN,TOTAL 0.3 mg/dl (0.2-1); CALCIUM 9.2 mg/dl (8.5-10.1); CREATININE 1.2 mg/dl (0.6-1.3); POTASSIUM 3.8 mmol/L (3.5-5.1); TOT PROT 6.2 g/dl (6.4-8.2)
[2024-06-02] MEDS: ENOXAPARIN NA (PORCINE) 40 MG/0.4 ML DISP.SYRIN SQ SCH (09:59)
[2024-06-02] MEDS: CEFTRIAXONE 2 GM in DEXTROSE 5%-WATER 100 ML IVPB SCH (09:59)
[2024-06-02] MEDS: TAMSULOSIN HCL 0.4 MG CAP PO SCH (09:59)
[2024-06-02 10:01] LABS: BASO % 0.6 % (0-2.0); EOS % 7.2 % (0-4.5); HEMATOCRIT 37.1 % (35.4-49); HEMOGLOBIN 12.5 GM/dL (11.7-16.9); LYMPH % 15.5 % (8-40); MCH 28.7 pg (25.7-33.7); MCHC 33.6 g/dl (32.0-35.9); MEAN CELL VOLUME 85.4 fl (80-96); MEAN PLT VOLUME 9.5 fl (7.5-11.1); MONO % 7.9 % (3.8-10.2); NEUT % 68.8 % (42.8-82.8); PLATELET COUNT 260 10^3/uL (134-434); RBC 4.34 M/mm3 (4.00-5.60); RDW 13.1 % (11.9-15.9); WHITE BLOOD COUNT 8.8 K/mm3 (4.0-10.0)
[2024-06-02] MEDS: ARTIFICIAL TEARS OPHTHALMIC DROPS OU PRN (10:04)
[2024-06-02 10:31] VITALS: RESP 18
[2024-06-03 10:17] VITALS: BP 126/80; PULSE 74; TEMP 97.9
== END 2024-06-03 16:15 | DRG 617 ==
LOC: FER 19:23 → FM/S 22:32 → OBSVTOIN 23:10
PROVIDERS: ADMIT Internal Medicine
PROC: 0HBNXZZ Excision of Left Foot Skin, External Approach (ICD-10-PCS; 2024-06-01)
PROC: 0Y6W0Z1 Detachment at Left 4th Toe, High, Open Approach (ICD-10-PCS; principal; 2024-06-01 12:03)
PROC: 0QBP0ZX Excision of Left Metatarsal, Open Approach, Diagnostic (ICD-10-PCS; 2024-06-01 12:03)
PROC: 02HV33Z Insertion of Infusion Device into Superior Vena Cava, Percutaneous Approach (ICD-10-PCS; 2024-06-03)
PROC: B518ZZA Fluoroscopy of Superior Vena Cava, Guidance (ICD-10-PCS; 2024-06-03)
DX: E11.69 Type 2 diabetes mellitus with other specified complication (principal); L03.116 Cellulitis of left lower limb; M86.9 Osteomyelitis, unspecified; E11.621 Type 2 diabetes mellitus with foot ulcer; L97.529 Non-pressure chronic ulcer of other part of left foot with unspecified severity; E78.5 Hyperlipidemia, unspecified; I12.9 Hypertensive chronic kidney disease with stage 1 through stage 4 chronic kidney disease, or unspecified chronic kidney disease; N18.30 Chronic kidney disease, stage 3 unspecified
CPT/HCPCS: 0241U-QW; 36415; 36569; 71045-TC-FY; 73630-TC-LT; 73718-TC-LT; 80048; 80053; 81003; 81015; 82550; 82962; 83036; 83735; 84100; 84484; 85025; 85027; 85651; 86140; 87040; 87070; 87075; 87077; 87086; 87186; 87205; 87635; 88305-TC; 88311-TC; 93005; 94760; 97116-GP; 97162-GP; 99285-25; G0378; G0480; J0131

== ENCOUNTER 2024-11-29 19:43 | Inpatient (IN) | payer OTHER, BC ==
[2024-11-29 20:08] VITALS: RESP 18
[2024-11-29 20:48] LABS: HEMATOCRIT 42.2 % (35.4-49); HEMOGLOBIN 14.5 G/dL (11.7-16.9); MCH 30.1 pg (25.7-33.7); MCHC 34.3 g/dl (32.0-35.9); MEAN CELL VOLUME 87.7 fl (80-96); MEAN PLT VOLUME 10.3 fl (7.5-11.1); PLATELET COUNT 178.7 10^3/uL (134-434); RBC 4.81 10^6/uL (4.00-5.60); RDW 13.3 % (11.9-15.9); WHITE BLOOD COUNT 10.6 10^3/uL (4.0-10.8)
[2024-11-29] MEDS ORDERED: PIPERACILLIN/TAZOBACTAM 3.375 GM VIAL IVPB ONE (20:59)
[2024-11-29] MEDS: PIPERACILLIN/TAZOB 3.375 GM 3.375 GM in DEXTROSE 5%-WATER - 50 ML IVPB ONE (21:06)
[2024-11-29 21:12] LABS: PLATELET ESTIMATE ADEQUATE
[2024-11-29 21:14] LABS: ALBUMIN 4.1 g/dl (3.4-5.0); BILIRUBIN,TOTAL 0.4 mg/dl (0.2-1); CALCIUM 9.8 mg/dl (8.5-10.1); CREATININE 1.5 mg/dl (0.6-1.3); POTASSIUM 4.2 mmol/L (3.5-5.1); TOT PROT 7.1 g/dl (6.4-8.2)
[2024-11-29 22:13] LABS: ERYTHROCYTE SEDIMENTATION RATE 12 mm/hr (0-20)
[2024-11-30] MEDS: PIPERACILLIN/TAZOB 3.375 GM 3.375 GM in DEXTROSE 5%-WATER - 50 ML IVPB SCH ×2 (07:01→12:57)
[2024-11-30] MEDS ORDERED: LIDOCAINE HCL/PF 2% SDV 5ML VIAL ONE (07:52)
[2024-11-30] MEDS: INSULIN ASPART SLIDING SCALE (NOVOLOG) 1 VIAL SQ SCH (08:00)
[2024-11-30] MEDS: glipiZIDE-XL 5 MG TAB.ER.24 PO SCH (09:00)
[2024-11-30 09:03] LABS: ALBUMIN 3.6 g/dl (3.4-5.0); BILIRUBIN,TOTAL 0.6 mg/dl (0.2-1); CALCIUM 9.4 mg/dl (8.5-10.1); CREATININE 1.6 mg/dl (0.6-1.3); POTASSIUM 4.2 mmol/L (3.5-5.1); TOT PROT 6.2 g/dl (6.4-8.2)
[2024-11-30] MEDS: MULTIVITAMINS (DAILY MVI) TABLET (FP) PO SCH (10:11)
[2024-11-30] MEDS: CHOLECALCIFEROL (VIT D3) 1,000 UNIT (25 MCG) TABLET PO SCH (10:11)
[2024-11-30 11:37] VITALS: BMI 28.4
[2024-11-30] MEDS: CEFTRIAXONE 2 GM-D5W BAG 2 GM/50 ML BAG IVPB SCH (12:32)
[2024-11-30] MEDS: SODIUM CHLORIDE 1,000 ML IV SCH (12:32)
[2024-11-30 12:55] LABS: BASO % 0.7 % (0-2.0); EOS % 4.7 % (0-4.5); HEMATOCRIT 39.2 % (35.4-49); HEMOGLOBIN 12.9 GM/dL (11.7-16.9); MCH 29.2 pg (25.7-33.7); MEAN CELL VOLUME 88.5 fl (80-96); MEAN PLT VOLUME 10.5 fl (7.5-11.1); MONO % 5.4 % (3.8-10.2); NEUT % 66.2 % (42.8-82.8); PLATELET COUNT 173 10^3/uL (134-434); RBC 4.43 M/mm3 (4.00-5.60); RDW 13.3 % (11.9-15.9); WHITE BLOOD COUNT 10.8 K/mm3 (4.0-10.0)
[2024-11-30] MEDS: glipiZIDE-XL 10 MG TAB.ER.24 (FP) PO SCH (12:58)
[2024-11-30] MEDS: INSULIN (LEVEMIR) 100 UNITS/ML UNITS SQ SCH ×2 (18:56→19:11)
[2024-11-30] MEDS: TAMSULOSIN HCL 0.4 MG CAP PO SCH (21:14)
[2024-12-01 08:35] LABS: ALBUMIN 3.6 g/dl (3.4-5.0); BILIRUBIN,TOTAL 0.7 mg/dl (0.2-1); CALCIUM 9.4 mg/dl (8.5-10.1); CREATININE 1.6 mg/dl (0.6-1.3); POTASSIUM 4.5 mmol/L (3.5-5.1); TOT PROT 6.2 g/dl (6.4-8.2)
[2024-12-01 09:38] LABS: BASO % 0.9 % (0-2.0); EOS % 5.5 % (0-4.5); HEMATOCRIT 40.7 % (35.4-49); HEMOGLOBIN 13.2 GM/dL (11.7-16.9); LYMPH % 19.5 % (8-40); MCH 28.5 pg (25.7-33.7); MCHC 32.4 g/dl (32.0-35.9); MONO % 6.5 % (3.8-10.2); NEUT % 67.6 % (42.8-82.8); PLATELET COUNT 159 10^3/uL (134-434); RBC 4.62 M/mm3 (4.00-5.60); WHITE BLOOD COUNT 8.3 K/mm3 (4.0-10.0)
[2024-12-01] MEDS: SODIUM CHLORIDE 0.45% 1,000 ML IV SCH (17:16)
[2024-12-01] MEDS ORDERED: INSULIN ASPART SLIDING SCALE (NOVOLOG) 1 VIAL SQ ONE (22:11)
[2024-12-02] MEDS ORDERED: PIPERACILLIN/TAZOB 3.375 GM 3.375 GM in DEXTROSE 5%-WATER - 50 ML IVPB SCH (02:00)
[2024-12-02] MEDS ORDERED: INSULIN ASPART SLIDING SCALE (NOVOLOG) 1 VIAL SQ ONE (06:24)
[2024-12-02 15:18] VITALS: BP 124/80; PULSE 91; TEMP 97.7
== END 2024-12-02 16:04 | disposition home or self-care (01) | DRG 301 ==
LOC: FER 19:43 → FM/S 22:27 → UNDOADMIN 22:43 → FM/S 22:43
PROVIDERS: ADMIT Internal Medicine
PROC: 0HBNXZZ Excision of Left Foot Skin, External Approach (ICD-10-PCS; principal; 2024-11-30)
DX: E11.51 Type 2 diabetes mellitus with diabetic peripheral angiopathy without gangrene (principal); N40.0 Benign prostatic hyperplasia without lower urinary tract symptoms; I12.9 Hypertensive chronic kidney disease with stage 1 through stage 4 chronic kidney disease, or unspecified chronic kidney disease; E11.22 Type 2 diabetes mellitus with diabetic chronic kidney disease; N18.30 Chronic kidney disease, stage 3 unspecified; E11.621 Type 2 diabetes mellitus with foot ulcer; L97.529 Non-pressure chronic ulcer of other part of left foot with unspecified severity
CPT/HCPCS: 36415; 73630-TC-LT; 76775-TC; 80053; 81003; 81015; 82436; 82570; 82962; 84133; 84300; 85025; 85651; 86140; 87040; 97116-GP; 97162-GP; 99285-25